=== PATIENT | male | born 1945 | race Caucasian/White ===

== ENCOUNTER 2018-02-19 00:26 | Inpatient (IN) | payer MEDICARE ==
[2018-02-19] MEDS ORDERED: ALBUTEROL NEBULIZED 2.5 MG/3 ML INHALATION STA (00:44)
[2018-02-19] MEDS ORDERED: AZITHROMYCIN 500 MG in SODIUM CHLORIDE 0.9% 250 ML IVPB STA (00:44)
[2018-02-19] MEDS ORDERED: methylPREDNISolone SOD SUCCI 125 MG/2 ML VIAL IV STA (00:44)
[2018-02-19] MEDS ORDERED: IPRATROPIUM 0.5 MG/2.5 ML NEBU INHALATION STA (00:44)
[2018-02-19] MEDS ORDERED: SODIUM CHLORIDE 0.9% 500 ML IV ONE ×2 (00:57→01:48)
[2018-02-19 01:00] LABS: Basophils % (A) 0 %; Eosinophils % (A) 0 %; HGB 11.2 gm/dL (13.0-17.5); Hypochromasia Moderate; Lymphocytes # (A) 1.2 k/uL (1.0-4.8); Lymphocytes % (A) 11 %; MCH 24.3 pg (25.0-35.0); MCHC 32.1 g/dL (31.0-37.0); MCV 75.7 fL (80.0-100.0); Mean Platelet Volume 6.9; Microcytosis Slight; Monocytes # (A) 1.1 k/uL (0-1.0); Monocytes % (A) 10 %; Neutrophils # (A) 8.1 k/uL (1.3-7.7); Neutrophils % (A) 75 %; Platelet Count 283 k/uL (150-450); RBC 4.62 m/uL (4.30-5.90); WBC 10.7 k/uL (3.8-10.6)
--- NOTE | 2018-02-19 01:01 | ED ---
General Adult HPI - General Chief complaint: Shortness of Breath Stated complaint: SHITAL Time Seen by Provider: 02/19/18 00:40 Source: patient, family, RN notes reviewed Mode of arrival: wheelchair Limitations: no limitations - History of Present Illness Initial comments: 72-year-old male history of COPD presents with 4 days of worsening cough and dyspnea. Patient has several no oxygen which she uses at home, he has been using 2 L. States his cough is productive of burton sputum. Denies any fever. Denies any central chest pain. Does report some chest pain which is worse with cough. Denies lower extremity swelling or edema or calf tenderness. No history of DVT or PE. Patient denies any known CAD or heart issues. He states he is still smoking although he has significantly cut back. - Related Data Allergies Allergy/AdvReac Type Severity Reaction Status Date / Time No Known Allergies Allergy Verified 02/19/18 00:34 Review of Systems ROS Statement: Those systems with pertinent positive or pertinent negative responses have been documented in the HPI. ROS Other: All systems not noted in ROS Statement are negative. Past Medical History Past Medical History: COPD, CVA/TIA History of Any Multi-Drug Resistant Organisms: None Reported Past Surgical History: No Surgical Hx Reported Past Psychological History: No Psychological Hx Reported Smoking Status: Current some day smoker Past Alcohol Use History: None Reported Past Drug Use History: None Reported General Exam Limitations: no limitations General appearance: alert, in distress Head exam: Present: atraumatic, normocephalic Eye exam: Present: normal appearance, PERRL, EOMI Respiratory exam: Present: respiratory distress, wheezes, rhonchi, decreased breath sounds, prolonged expiratory Cardiovascular Exam: Present: normal rhythm, tachycardia GI/Abdominal exam: Present: soft. Absent: distended, tenderness Extremities exam: Present: normal inspection, normal capillary refill. Absent: pedal edema, calf tenderness Neurological exam: Present: alert, oriented X3, CN II-XII intact. Absent: motor sensory deficit Psychiatric exam: Present: normal affect, normal mood Skin exam: Present: warm, dry, intact. Absent: cyanosis, diaphoretic Course Vital Signs 02/19/18 02/19/18 02/19/18 00:31 00:52 01:05 Temperature 99.0 F Pulse Rate 125 H 118 H 118 H Respiratory 36 H Rate Blood Pressure 169/81 O2 Sat by Pulse 93 L Oximetry 02/19/18 02/19/18 02/19/18 01:20 01:37 02:02 Temperature 100.8 F H Pulse Rate 110 H 113 H Respiratory Rate Blood Pressure O2 Sat by Pulse Oximetry 02/19/18 02:15 Temperature Pulse Rate 97 Respiratory 20 Rate Blood Pressure 142/63 O2 Sat by Pulse 96 Oximetry - Reevaluation(s) Reevaluation #1: 02/19/18 02:30 On reevaluation, patient is significantly improved on BiPAP. Oxygenation 100%, vital signs improved. Patient appears comfortable. He will be continued on BiPAP and admitted to [facility] ([facility] care. EKG Findings - EKG Comments: EKG Findings:: EKG: Sinus tachycardia, right atrial enlargement, ventricular rate 103, MN interval 122, QRS duration 94, QTC 437, there is no ST segment elevation. Medical Decision Making - Medical Decision Making 72-year-old male presenting with cough and dyspnea for the past 4 days. Patient is in severe respiratory distress upon arrival. He is hypoxic, placed on BiPAP, given albuterol Atrovent and steroids. Laboratory studies are obtained, white blood cell count 10.7 which is normal, hemoglobin 11.2, no baseline for comparison. Venous blood gas is obtained, this is significant for pH of 7.2 with a CO2 of 69 consistent with hypercarbic respiratory failure. Creatinine 1.4 no known baseline. There is troponin elevation of 0.051, this is likely secondary to demand ischemia and hypoxia. Troponin will be trended. BNP is normal. Chest x-ray shows hyperinflation, no focal pneumonia. D-dimer is elevated 1.6, however given the elevated creatinine VQ scan will be obtained, this is unable to be obtained in the emergency department, nuclear radiation engineer states this will hopefully be completed in the morning. Patient is started on high-dose heparin for about the concern of possible pulmonary embolism as well as troponin elevation. Diagnosis: COPD exacerbation with hypoxic hypercapnic respiratory failure. - Lab Data Result diagrams: 02/19/18 00:40 02/19/18 00:40 Lab Results 02/19/18 02/19/18 02/19/18 Range/Units 00:40 00:40 00:40 WBC 10.7 H (3.8-10.6) k/uL RBC 4.62 (4.30-5.90) m/uL Hgb 11.2 L (13.0-17.5) gm/dL Hct 35.0 L (39.0-53.0) % MCV 75.7 L (80.0-100.0) fL MCH 24.3 L (25.0-35.0) pg MCHC 32.1 (31.0-37.0) g/dL RDW 15.0 (11.5-15.5) % Plt Count 283 (150-450) k/uL Neutrophils % 75 % Lymphocytes % 11 % Monocytes % 10 % Eosinophils % 0 % Basophils % 0 % Neutrophils # 8.1 H (1.3-7.7) k/uL Lymphocytes # 1.2 (1.0-4.8) k/uL Monocytes # 1.1 H (0-1.0) k/uL Eosinophils # 0.0 (0-0.7) k/uL Basophils # 0.0 (0-0.2) k/uL Hypochromasia Moderate Microcytosis Slight PT (9.0-12.0) sec INR (<1.2) APTT (22.0-30.0) sec D-Dimer (<0.60) mg/L FEU VBG pH (7.31-7.41) VBG pCO2 (37-51) mmHg VBG HCO3 (24-28) mmol/L Sodium 140 (137-145) mmol/L Potassium 4.8 (3.5-5.1) mmol/L Chloride 101 (98-107) mmol/L Carbon Dioxide 27 (22-30) mmol/L Anion Gap 12 mmol/L BUN 23 H (9-20) mg/dL Creatinine 1.40 H (0.66-1.25) mg/dL Est GFR (CKD-EPI)AfAm 57 (>60 ml/min/1.73 sqM) Est GFR (CKD-EPI)NonAf 50 (>60 ml/min/1.73 sqM) Glucose 159 H (74-99) mg/dL Plasma Lactic Acid Andi (0.7-2.0) mmol/L Calcium 9.5 (8.4-10.2) mg/dL Magnesium 1.9 (1.6-2.3) mg/dL Total Bilirubin 0.6 (0.2-1.3) mg/dL AST 16 L (17-59) U/L ALT 16 L (21-72) U/L Alkaline Phosphatase 99 (38-126) U/L Total Creatine Kinase 107 (55-170) U/L CK-MB (CK-2) 3.4 H* (0.0-2.4) ng/mL CK-MB (CK-2) Rel Index 3.2 Troponin I 0.051 H* (0.000-0.034) ng/mL NT-Pro-B Natriuret Pep pg/mL Total Protein 7.1 (6.3-8.2) g/dL Albumin 4.0 (3.5-5.0) g/dL 02/19/18 02/19/18 02/19/18 Range/Units 00:40 00:40 00:40 WBC (3.8-10.6) k/uL RBC (4.30-5.90) m/uL Hgb (13.0-17.5) gm/dL Hct (39.0-53.0) % MCV (80.0-100.0) fL MCH (25.0-35.0) pg MCHC (31.0-37.0) g/dL RDW (11.5-15.5) % Plt Count (150-450) k/uL Neutrophils % % Lymphocytes % % Monocytes % % Eosinophils % % Basophils % % Neutrophils # (1.3-7.7) k/uL Lymphocytes # (1.0-4.8) k/uL Monocytes # (0-1.0) k/uL Eosinophils # (0-0.7) k/uL Basophils # (0-0.2) k/uL Hypochromasia Microcytosis PT 10.3 (9.0-12.0) sec INR 1.1 (<1.2) APTT 23.0 (22.0-30.0) sec D-Dimer 1.60 H (<0.60) mg/L FEU VBG pH 7.20 L* (7.31-7.41) VBG pCO2 69 H (37-51) mmHg VBG HCO3 26 (24-28) mmol/L Sodium (137-145) mmol/L Potassium (3.5-5.1) mmol/L Chloride (98-107) mmol/L Carbon Dioxide (22-30) mmol/L Anion Gap mmol/L BUN (9-20) mg/dL Creatinine (0.66-1.25) mg/dL Est GFR (CKD-EPI)AfAm (>60 ml/min/1.73 sqM) Est GFR (CKD-EPI)NonAf (>60 ml/min/1.73 sqM) Glucose (74-99) mg/dL Plasma Lactic Acid Andi (0.7-2.0) mmol/L Calcium (8.4-10.2) mg/dL Magnesium (1.6-2.3) mg/dL Total Bilirubin (0.2-1.3) mg/dL AST (17-59) U/L ALT (21-72) U/L Alkaline Phosphatase (38-126) U/L Total Creatine Kinase (55-170) U/L CK-MB (CK-2) (0.0-2.4) ng/mL CK-MB (CK-2) Rel Index Troponin I (0.000-0.034) ng/mL NT-Pro-B Natriuret Pep 540 pg/mL Total Protein (6.3-8.2) g/dL Albumin (3.5-5.0) g/dL 02/19/18 Range/Units 00:40 WBC (3.8-10.6) k/uL RBC (4.30-5.90) m/uL Hgb (13.0-17.5) gm/dL Hct (39.0-53.0) % MCV (80.0-100.0) fL MCH (25.0-35.0) pg MCHC (31.0-37.0) g/dL RDW (11.5-15.5) % Plt Count (150-450) k/uL Neutrophils % % Lymphocytes % % Monocytes % % Eosinophils % % Basophils % % Neutrophils # (1.3-7.7) k/uL Lymphocytes # (1.0-4.8) k/uL Monocytes # (0-1.0) k/uL Eosinophils # (0-0.7) k/uL Basophils # (0-0.2) k/uL Hypochromasia Microcytosis PT (9.0-12.0) sec INR (<1.2) APTT (22.0-30.0) sec D-Dimer (<0.60) mg/L FEU VBG pH (7.31-7.41) VBG pCO2 (37-51) mmHg VBG HCO3 (24-28) mmol/L Sodium (137-145) mmol/L Potassium (3.5-5.1) mmol/L Chloride (98-107) mmol/L Carbon Dioxide (22-30) mmol/L Anion Gap mmol/L BUN (9-20) mg/dL Creatinine (0.66-1.25) mg/dL Est GFR (CKD-EPI)AfAm (>60 ml/min/1.73 sqM) Est GFR (CKD-EPI)NonAf (>60 ml/min/1.73 sqM) Glucose (74-99) mg/dL Plasma Lactic Acid Andi 1.2 (0.7-2.0) mmol/L Calcium (8.4-10.2) mg/dL Magnesium (1.6-2.3) mg/dL Total Bilirubin (0.2-1.3) mg/dL AST (17-59) U/L ALT (21-72) U/L Alkaline Phosphatase (38-126) U/L Total Creatine Kinase (55-170) U/L CK-MB (CK-2) (0.0-2.4) ng/mL CK-MB (CK-2) Rel Index Troponin I (0.000-0.034) ng/mL NT-Pro-B Natriuret Pep pg/mL Total Protein (6.3-8.2) g/dL Albumin (3.5-5.0) g/dL Critical Care Time Critical Care Time: Yes Total Critical Care Time: 35 Disposition Clinical Impression: Acute exacerbation of chronic obstructive airways disease Disposition: ADMITTED IP TO THIS HOSP Condition: Stable Referrals: Pepe Ruvalcaba MD [Primary Care Provider] - 1-2 days Decision to Admit Reason: Admit from EC Decision Date: 02/19/18 Decision Time: 02:28
[2018-02-19 01:08] LABS: Calcium 9.5 mg/dL (8.4-10.2); D-Dimer 1.6 mg/L FEU (<0.60); Magnesium 1.9 mg/dL (1.6-2.3); Potassium 4.8 mmol/L (3.5-5.1); Total Bilirubin 0.6 mg/dL (0.2-1.3); Total Protein 7.1 g/dL (6.3-8.2)
[2018-02-19 01:12] LABS: VBG PH 7.2 (7.31-7.41)
[2018-02-19 01:17] LABS: INR 1.1 (<1.2); Prothrombin Time 10.3 sec (9.0-12.0)
[2018-02-19] MEDS: MAGNESIUM SULFATE-D5W PMX 1 GM in DEXTROSE/WATER 1 100ML.BAG IVPB SCH ×2 (01:24→02:51)
[2018-02-19] MEDS: SODIUM CHLORIDE 0.9% 1,000 ML IV SCH (01:32)
[2018-02-19 01:39] LABS: Creatine Kinase MB 3.4 ng/mL (0.0-2.4)
--- NOTE | 2018-02-19 01:39 | XR ---
EXAMINATION TYPE: XR chest 1V portable DATE OF EXAM: 02/19/2018 COMPARISON: 03/15/2015 HISTORY: Difficulty breathing TECHNIQUE: Single frontal view of the chest is obtained. FINDINGS: There is pulmonary hyperinflation and flattening of the diaphragm. Heart size is normal. T here is no heart failure. There are chest leads. Bony thorax appears intact. IMPRESSION: There is probably COPD. No active cardiopulmonary disease. There is clearing of minimal infiltrate at the right lung base compared to old exam.
[2018-02-19 01:40] LABS: Troponin I 0.051 ng/mL (0.000-0.034)
[2018-02-19] MEDS ORDERED: HEPARIN SODIUM,PORCINE 5,000 UNIT/ML 1 ML VIAL IV PRN (01:44)
[2018-02-19] MEDS ORDERED: HEPARIN SODIUM,PORCINE 10,000 UNIT/ML 1 ML VIAL IV ONE (01:44)
[2018-02-19] MEDS ORDERED: HEPARIN SOD,PORK IN 0.45% NACL 25,000 UNIT in 0.45% NACL 1 500ML.BAG IV SCH (01:45)
[2018-02-19] MEDS ORDERED: ASPIRIN 325 MG TAB PO STA (01:48)
[2018-02-19] MEDS ORDERED: ALBUTEROL NEBULIZED 2.5 MG/3 ML INHALATION PRN (02:22)
[2018-02-19] MEDS: ALBUTEROL NEBULIZED 2.5 MG/3 ML INHALATION SCH ×2 (03:47→08:34)
[2018-02-19 05:46] LABS: Glucose,Whole Blood 145 mg/dL (75-99)
[2018-02-19] MEDS: methylPREDNISolone SOD SUCCI 125 MG/2 ML VIAL IV SCH ×3 (06:11→17:04)
[2018-02-19] MEDS ORDERED: LEVOFLOXACIN 500 MG TAB PO SCH (09:00)
[2018-02-19 09:24] LABS: Creatine Kinase MB 3.4 ng/mL (0.0-2.4)
[2018-02-19 09:25] LABS: Troponin I 0.079 ng/mL (0.000-0.034)
[2018-02-19 09:43] LABS: Cholesterol 159 mg/dL (<200); HDL Cholesterol 58 mg/dL (40-60); LDL Cholesterol,Calculated 84 mg/dL (0-99); Triglycerides 83 mg/dL (<150)
--- NOTE | 2018-02-19 09:45 | NM ---
EXAMINATION TYPE: NM pul vent and perfuse DATE OF EXAM: 02/19/2018 COMPARISON: Chest radiograph dated 02/18/2018. HISTORY: Difficulty breathing, cough, and wheezing TECHNIQUE: Utilizing inhalation of 67.9 mCi Tc 99m DTPA aerosol and intravenous injection of 5.24 mC i of Tc 99m MAA, ventilation and perfusion images are acquired post injection in multiple projections . FINDINGS: Large matched defects are seen within nearly the entirety of the right upper lobe and left lower lobe . Diffuse radiotracer collection is seen on the ventilation images, limiting the exam. Matched defect s are also seen within the bilateral lung apices matched defect is also seen within the right anterio r lower lung. IMPRESSION: Exam is slightly limited due to radiotracer clumping from COPD can be seen in orchitis and reactive a irway disease. Numerous large matched defects are seen without focal consolidation on chest radiograp h corresponding to a low probability for pulmonary embolus.
[2018-02-19] MEDS ORDERED: ROFLUMILAST 500 MCG PO SCH (10:15)
--- NOTE | 2018-02-19 10:15 | CONS ---
CONSULTATION CHIEF COMPLAINT: Shortness of breath. Hunter is a 72-year-old gentleman with history of COPD that has not been treated very well, who comes in complaining of cough and progressively worsening dyspnea for the last few days. The patient has started using home O2 within the last week or 2 and treated for his COPD. He complains of cough and productive sputum and when he came in he was in respiratory failure with blood gases showing a pCO2 of 69 and bicarb of 26 with a pH of 7.2, but these were venous gases. At the time of my evaluation, he has a BiPAP on. He denies any chest pain. Labs that were done showed a D-dimer of 1.6. V/Q scan is scheduled. Troponin is elevated at 0.051.Troponin is slightly elevated. The EKG shows sinus tachycardia with nonspecific ST-T wave changes. PAST MEDICAL HISTORY: Past medical history is negative for hypertension, diabetes, dyslipidemia. Significant for severe COPD that has not been treated. MEDICATIONS: None. ALLERGIES: None. FAMILY HISTORY: Family history is negative for premature coronary artery disease. SOCIAL HISTORY: Social history is significant for smoking. There is no history of EtOH abuse or drug abuse. REVIEW OF SYSTEMS: HEENT is unremarkable. CARDIAC: As described above. RESPIRATORY: As described above. GI: Negative. GENITOURINARY: Negative. ALLERGY/IMMUNOLOGY: Negative. SKIN: Negative. MUSCULOSKELETAL: Significant for arthritis. PSYCHOSOCIAL: Negative. ENDOCRINE: Negative. HEMATOLOGICAL: Negative. DERM: Negative. CONSTITUTIONAL: Negative. ONCOLOGICAL: Negative. NURSES AIDE: Negative. Rest of the system review is not relevant. PHYSICAL EXAMINATION: On exam, Hemoglobin is 11.2, platelet count is 283. Potassium is 4.8, BUN is 23, creatinine is 1.4. Troponin is 0.051. BNP is 541. ASSESSMENT: 1. Acute exacerbation of chronic obstructive pulmonary disease. 2. D-dimer elevation, rule out pulmonary embolism. V/Q scan is pending. 3. Mild troponin elevation probably related to supply demand mismatch related to severe respiratory distress. PLAN: Please consult Pulmonary to manage his COPD. We can stop the heparin if the V/Q scan is negative. I will obtain a 2D echo to assess LV function and wall motion. Prognosis is guarded. MMODL / IJN: [id number] /
--- NOTE | 2018-02-19 10:16 | P.HPIM ---
History of Present Illness H&P Date: 02/19/18 Chief Complaint: Shortness of breath Hunter Grover is a 72-year-old male history of COPD who presented to [facility] emergency room was a chief complaint of severe shortness of breath and cough. He was evaluated in the emergency room, physical exam and chest x-ray were compatible with COPD he was started on IV antibiotics, IV steroids, and inhaled bronchodilators, patient also had slightly elevated troponin and elevated d-dimer he was started on IV heparin in the emergency room , subsequently he had a VQ scan that was low probability for pulmonary embolism. Patient was admitted to telemetry floor pulmonary and cardiology consultation were requested. Patient has a long history of chronic obstructive pulmonary disease with chronic respiratory failure he was recently started on home oxygen he is still smokes a few cigarettes per day despite extensive counseling. Patient denies any previous history of coronary artery disease or congestive heart failure in the past, he did not have any cardiac workup previously. On review of systems: Patient is alert and oriented 3 he denies any fever or chills there is no headache or dizziness No chest pain no palpitation He is complaining of severe shortness of breath and cough, both improved since presentation to emergency room There is no nausea or vomiting no abdominal pain no diarrhea or constipation no blood in the stools. No burning was urination no frequency or urgency and no hematuria Patient denies lower extremity pain, there is no weakness or numbness in any of his extremities. Past Medical History Past Medical History: COPD, CVA/TIA Additional Past Medical History / Comment(s): TIA in 2007 History of Any Multi-Drug Resistant Organisms: None Reported Past Surgical History: No Surgical Hx Reported Additional Past Surgical History / Comment(s): vasectomy Past Anesthesia/Blood Transfusion Reactions: No Reported Reaction Past Psychological History: No Psychological Hx Reported Smoking Status: Current some day smoker Past Alcohol Use History: None Reported Past Drug Use History: None Reported - Past Family History Mother Family Medical History: No Reported History Additional Family Medical History / Comment(s): breast cancer history on mothers side Medications and Allergies Home Medications Medication Instructions Recorded Confirmed Type Ipratropium-Albuterol Nebulize 3 ml INHALATION RT-QID 02/19/18 02/19/18 History [Duoneb 0.5 mg-3 mg/3 ml Soln] Roflumilast [Daliresp] 500 mcg PO DAILY 02/19/18 02/19/18 History Allergies Allergy/AdvReac Type Severity Reaction Status Date / Time No Known Allergies Allergy Verified 02/19/18 09:16 Physical Exam Vitals: Vital Signs Temp Pulse Pulse Resp BP BP Pulse Ox 02/19/18 08:44 62 02/19/18 08:34 61 99 02/19/18 08:00 63 26 H 120/56 99 02/19/18 04:30 97.5 F L 88 24 132/60 96 02/19/18 02:54 92 18 122/64 96 02/19/18 02:15 97 20 142/63 96 02/19/18 02:02 100.8 F H 02/19/18 01:37 113 H 02/19/18 01:20 110 H 02/19/18 01:05 118 H 02/19/18 00:52 118 H 02/19/18 00:31 99.0 F 125 H 36 H 169/81 93 L Intake and Output 02/18/18 02/19/18 02/19/18 22:59 06:59 14:59 Intake Total 150 Balance 150 Intake: Intake, IV Titration 150 Amount Sodium Chloride 0.9% 1, 150 000 ml @ 75 mls/hr IV . [id number] [facility] Rx#:[id number] Other: Voiding Method Urinal Urinal Weight 65.771 kg In general patient is alert and oriented 3 in no apparent distress HEENT head normocephalic and atraumatic Neck is supple no JVD no goiter no lymphadenopathy Chest exam reveals a few scattered crackles bilaterally no wheezing at this time Cardiac exam reveals regular heart sounds S1 and S2 no gallops no murmurs Abdomen is soft nontender no organomegaly with normal bowel sounds Extremity exam reveals no edema no cyanosis or clubbing Neurological examination reveals no gross focal deficit Results CBC & Chem 7: 02/19/18 00:40 02/19/18 00:40 Labs: Abnormal Lab Results - Last 24 Hours (Table) 02/19/18 02/19/18 02/19/18 Range/Units 00:40 00:40 00:40 WBC 10.7 H (3.8-10.6) k/uL Hgb 11.2 L (13.0-17.5) gm/dL Hct 35.0 L (39.0-53.0) % MCV 75.7 L (80.0-100.0) fL MCH 24.3 L (25.0-35.0) pg Neutrophils # 8.1 H (1.3-7.7) k/uL Monocytes # 1.1 H (0-1.0) k/uL APTT (22.0-30.0) sec D-Dimer (<0.60) mg/L FEU VBG pH (7.31-7.41) VBG pCO2 (37-51) mmHg BUN 23 H (9-20) mg/dL Creatinine 1.40 H (0.66-1.25) mg/dL Glucose 159 H (74-99) mg/dL POC Glucose (mg/dL) (75-99) mg/dL AST 16 L (17-59) U/L ALT 16 L (21-72) U/L CK-MB (CK-2) 3.4 H* (0.0-2.4) ng/mL Troponin I 0.051 H* (0.000-0.034) ng/mL 02/19/18 02/19/18 02/19/18 Range/Units 00:40 00:40 05:45 WBC (3.8-10.6) k/uL Hgb (13.0-17.5) gm/dL Hct (39.0-53.0) % MCV (80.0-100.0) fL MCH (25.0-35.0) pg Neutrophils # (1.3-7.7) k/uL Monocytes # (0-1.0) k/uL APTT (22.0-30.0) sec D-Dimer 1.60 H (<0.60) mg/L FEU VBG pH 7.20 L* (7.31-7.41) VBG pCO2 69 H (37-51) mmHg BUN (9-20) mg/dL Creatinine (0.66-1.25) mg/dL Glucose (74-99) mg/dL POC Glucose (mg/dL) 145 H (75-99) mg/dL AST (17-59) U/L ALT (21-72) U/L CK-MB (CK-2) (0.0-2.4) ng/mL Troponin I (0.000-0.034) ng/mL 02/19/18 02/19/18 Range/Units 07:49 07:49 WBC (3.8-10.6) k/uL Hgb (13.0-17.5) gm/dL Hct (39.0-53.0) % MCV (80.0-100.0) fL MCH (25.0-35.0) pg Neutrophils # (1.3-7.7) k/uL Monocytes # (0-1.0) k/uL APTT 49.6 H (22.0-30.0) sec D-Dimer (<0.60) mg/L FEU VBG pH (7.31-7.41) VBG pCO2 (37-51) mmHg BUN (9-20) mg/dL Creatinine (0.66-1.25) mg/dL Glucose (74-99) mg/dL POC Glucose (mg/dL) (75-99) mg/dL AST (17-59) U/L ALT (21-72) U/L CK-MB (CK-2) 3.4 H* (0.0-2.4) ng/mL Troponin I 0.079 H* (0.000-0.034) ng/mL Thrombosis Risk Factor Assmnt - Choose All That Apply Any of the Below Risk Factors Present?: Yes Each Factor Represents 1 point: Abnormal pulmonary function (COPD) Other Risk Factors: Yes Each Risk Factor Represents 2 Points: Age 61-74 years Each Risk Factor Represents 3 Points: Family history of DVT/PE Thrombosis Risk Factor Assessment Total Risk Factor Score: 6 Thrombosis Risk Factor Assessment Level: High Risk Assessment and Plan Plan: #1 acute purulent bronchitis #2 acute exacerbation of chronic obstructive pulmonary disease #3 chronic hypoxic respiratory failure #4 elevated d-dimer, with low probability VQ scan #5 elevated troponin levels At this time patient is maintained on IV Solu-Medrol, IV Levaquin, IV heparin DuoNeb updrafts 4 times daily and oxygen treatment He improved significantly since admission Will continue with current management awaiting input from cardiology and pulmonary Patient was counseled again regarding smoking cessation he has two daughters, who are both nurses and were present at the bedside during counseling. Patient seems to understand importance of smoking cessation.
[2018-02-19 11:33] LABS: Glucose,Whole Blood 164 mg/dL (75-99)
[2018-02-19] MEDS: IPRATROPIUM-ALBUTEROL 3 ML NEB INHALATION SCH ×3 (11:50→19:49)
--- NOTE | 2018-02-19 12:03 | ECHOF ---
Referral Reason:dyspnea MEASUREMENTS -------- HEIGHT: 180.3 cm WEIGHT: 65.8 kg BP: 120/56 RVIDd: 3.6 cm (< 3.3) IVSd: 1.4 cm (0.6 - 1.1) LVIDd: 3.6 cm (3.9 - 5.3) LVPWd: 1.3 cm (0.6 - 1.1) IVSs: 1.9 cm LVIDs: 2.6 cm LVPWs: 1.6 cm LA Diam: 3.0 cm (2.7 - 3.8) Ao Diam: 3.3 cm (2.0 - 3.7) AV Cusp: 2.4 cm (1.5 - 2.6) MV EXCURSION: 16.594 mm (> 18.000) MV EF SLOPE: 173 mm/s (70 - 150) EPSS: 0.4 cm MV E Chidi: 0.72 m/s MV DecT: 227 ms MV A Chidi: 0.78 m/s MV E/A Ratio: 0.93 FINDINGS -------- Sinus rhythm. This was a technically adequate study. The left ventricular size is normal. There is moderate concentric left ventricular hypertrophy. O verall left ventricular systolic function is normal with, an EF between 55 - 60 %. The right ventricle is mildly enlarged. The left atrium is normal in size. The right atrium is normal in size. The aortic valve is trileaflet and appears structurally normal. Mild mitral annular calcification present. The tricuspid valve appears structurally normal. There is no pulmonic regurgitation present. The aortic root size is normal. Normal inferior vena cava with normal inspiratory collapse consistent with estimated right atrial pre ssure of 5 mmHg. There is no pericardial effusion. CONCLUSIONS -------- 1. Sinus rhythm. 2. This was a technically adequate study. 3. The left ventricular size is normal. 4. There is moderate concentric left ventricular hypertrophy. 5. Overall left ventricular systolic function is normal with, an EF between 55 - 60 %. 6. The right ventricle is mildly enlarged. 7. The left atrium is normal in size. 8. The right atrium is normal in size. 9. The aortic valve is trileaflet and appears structurally normal. 10. Mild mitral annular calcification present. 11. The tricuspid valve appears structurally normal. 12. There is no pulmonic regurgitation present. 13. The aortic root size is normal. 14. Normal inferior vena cava with normal inspiratory collapse consistent with estimated right atrial pressure of 5 mmHg. 15. There is no pericardial effusion. RUBB[employer] COMPOUNDER SUPERVISOR: Leslee Thornton RDCS
[2018-02-19 13:56] LABS: Creatine Kinase MB 4.7 ng/mL (0.0-2.4); Troponin I 0.061 ng/mL (0.000-0.034)
--- NOTE | 2018-02-19 14:30 | P.CNPUL ---
History of Present Illness Consult date: 02/19/18 Reason for consult: dyspnea, cough, COPD, hypoxemia Chief complaint: Shortness of breath History of present illness: Consult dated 02/19/2018 This is a 72-year-old male with a history of COPD. Presents with 4 days of increasing shortness of breath cough wheezing chest tightness and yellow-green phlegm production. He recently was prescribed oxygen therapy by his primary care physician. Has never seen a lung doctor in the past. Started smoking at the age of 13 he continues to smoke. He smokes anywhere from 1-3 packs a day. The patient denies coughing up blood. Appetite and poor the last couple of days. He's lost a bit of weight not a lot. The patient has chest x-ray which was primarily COPD. He denies any other major medical problems including diabetes high blood pressure hyperlipidemia hypertension coronary artery disease , etc. He apparently did have a history in the past of CVA or TIA. 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 Review of Systems Constitutional negative, neurologic negative, cardiovascular negative, HEENT negative, pulmonary shortness of breath chest tightness wheezing coughing yellow -green phlegm production, GI/ negative, rheumatologic negative dermatologic negative endocrinologic negative Past Medical History Past Medical History: COPD, CVA/TIA Additional Past Medical History / Comment(s): TIA in 2007 History of Any Multi-Drug Resistant Organisms: None Reported Past Surgical History: No Surgical Hx Reported Additional Past Surgical History / Comment(s): vasectomy Past Anesthesia/Blood Transfusion Reactions: No Reported Reaction Past Psychological History: No Psychological Hx Reported Smoking Status: Current some day smoker Past Alcohol Use History: None Reported Past Drug Use History: None Reported - Past Family History Mother Family Medical History: No Reported History Additional Family Medical History / Comment(s): breast cancer history on mothers side Medications and Allergies Home Medications Medication Instructions Recorded Confirmed Type Ipratropium-Albuterol Nebulize 3 ml INHALATION RT-QID 02/19/18 02/19/18 History [Duoneb 0.5 mg-3 mg/3 ml Soln] Roflumilast [Daliresp] 500 mcg PO DAILY 02/19/18 02/19/18 History Allergies Allergy/AdvReac Type Severity Reaction Status Date / Time No Known Allergies Allergy Verified 02/19/18 09:16 Physical Exam Osteopathic Statement: *. No significant issues noted on an osteopathic structural exam other than those noted in the History and Physical/Consult. Vitals: Vital Signs Temp Pulse Pulse Resp BP BP Pulse Ox 02/19/18 12:00 97.0 F L 67 78 18 142/65 96 02/19/18 11:50 66 02/19/18 08:44 62 02/19/18 08:34 61 99 02/19/18 08:00 63 26 H 120/56 99 02/19/18 04:30 97.5 F L 88 24 132/60 96 02/19/18 02:54 92 18 122/64 96 02/19/18 02:15 97 20 142/63 96 02/19/18 02:02 100.8 F H 02/19/18 01:37 113 H 02/19/18 01:20 110 H 02/19/18 01:05 118 H 02/19/18 00:52 118 H 02/19/18 00:31 99.0 F 125 H 36 H 169/81 93 L Intake and Output 02/18/18 02/19/18 02/19/18 22:59 06:59 14:59 Intake Total 150 Balance 150 Intake: Intake, IV Titration 150 Amount Sodium Chloride 0.9% 1, 150 000 ml @ 75 mls/hr IV . [id number] [facility] Rx#:[id number] Other: Voiding Method Urinal Urinal Weight 65.771 kg No acute distress, oriented 3. The patient is wearing oxygen by nasal cannula HEENT examination is grossly unremarkable. Mucous membranes are moist. No oral lesions. There is a small lipoma on the left side of his forehead. Neck supple. Full range of motion. No adenopathy thyromegaly or neck vein distention. Cardiovascular examination reveals regular rhythm rate. S1-S2 normal. No S3 or S4. No discernible murmur noted. Lungs reveal severely diminished breath sounds. Breath sounds are equal bilaterally. There is prolongation on forced maneuver. The patient wheezes and coughs on forced maneuver. There are also coarse rhonchi on forced maneuver.. Abdomen soft bowel sounds are heard. No masses or tenderness. Extremities are intact. No cyanosis clubbing or edema. Skin is without rash or lesion. Neurologic examination is brief but nonfocal. Results - Laboratory Findings CBC and BMP: 02/19/18 00:40 02/19/18 00:40 PT/INR, D-dimer PT 10.3 sec (9.0-12.0) 02/19/18 00:40 INR 1.1 (<1.2) 02/19/18 00:40 D-Dimer 1.60 mg/L FEU (<0.60) H 02/19/18 00:40 Abnormal lab findings: Abnormal Labs 02/19/18 02/19/18 02/19/18 00:40 00:40 00:40 WBC 10.7 H Hgb 11.2 L Hct 35.0 L MCV 75.7 L MCH 24.3 L Neutrophils # 8.1 H Monocytes # 1.1 H APTT D-Dimer VBG pH VBG pCO2 BUN 23 H Creatinine 1.40 H Glucose 159 H POC Glucose (mg/dL) AST 16 L ALT 16 L CK-MB (CK-2) 3.4 H* Troponin I 0.051 H* 02/19/18 02/19/18 02/19/18 00:40 00:40 05:45 WBC Hgb Hct MCV MCH Neutrophils # Monocytes # APTT D-Dimer 1.60 H VBG pH 7.20 L* VBG pCO2 69 H BUN Creatinine Glucose POC Glucose (mg/dL) 145 H AST ALT CK-MB (CK-2) Troponin I 02/19/18 02/19/18 02/19/18 07:49 07:49 11:29 WBC Hgb Hct MCV MCH Neutrophils # Monocytes # APTT 49.6 H D-Dimer VBG pH VBG pCO2 BUN Creatinine Glucose POC Glucose (mg/dL) 164 H AST ALT CK-MB (CK-2) 3.4 H* Troponin I 0.079 H* 02/19/18 12:42 WBC Hgb Hct MCV MCH Neutrophils # Monocytes # APTT D-Dimer VBG pH VBG pCO2 BUN Creatinine Glucose POC Glucose (mg/dL) AST ALT CK-MB (CK-2) 4.7 H* Troponin I 0.061 H* - Diagnostic Findings Chest x-ray: image reviewed (Chest x-ray labs and medications are all reviewed.) Assessment and Plan Assessment: Assessment COPD exacerbation complicated by purulent tracheobronchitis Probable severe emphysema Previous history of TIA 60 years of tobacco use at one pack a day or more with ongoing tobacco use with nicotine addiction Hypoxemia secondary to COPD Plan: Plan dated 02/19/2018 The patient will be placed on systemic corticosteroids. The patient should also be on DuoNeb's 4 times a day and when necessary as well as long-acting beta agonist and inhaled corticosteroids. An oral antibiotic would be appropriate. More importantly, the patient is counseled on the importance of smoking cessation and the patient will follow with me in the office post discharge for pulmonary function test and a 6 minute walk distance. Time with Patient: Greater than 30
[2018-02-19 16:33] LABS: Glucose,Whole Blood 136 mg/dL (75-99)
[2018-02-19] MEDS: BUDESONIDE 1 MG/2 ML NEBU INHALATION SCH (19:49)
[2018-02-19] MEDS: FORMOTEROL FUMARATE 20 MCG/2 ML NEBU INHALATION SCH (19:53)
[2018-02-19] MEDS ORDERED: IPRATROPIUM-ALBUTEROL 3 ML NEB INHALATION PRN (20:07)
[2018-02-19 21:20] LABS: Glucose,Whole Blood 155 mg/dL (75-99)
[2018-02-20] MEDS: methylPREDNISolone SOD SUCCI 125 MG/2 ML VIAL IV SCH ×4 (00:54→17:31)
[2018-02-20 05:40] LABS: Glucose,Whole Blood 157 mg/dL (75-99)
[2018-02-20] MEDS: SODIUM CHLORIDE 0.9% 1,000 ML IV SCH ×2 (05:48→17:34)
[2018-02-20 06:21] LABS: Basophils % (A) 0 %; Eosinophils % (A) 0 %; Hypochromasia Moderate; Lymphocytes # (A) 0.3 k/uL (1.0-4.8); Lymphocytes % (A) 5 %; MCH 23.8 pg (25.0-35.0); MCHC 31.8 g/dL (31.0-37.0); MCV 74.9 fL (80.0-100.0); Mean Platelet Volume 6.5; Microcytosis Slight; Monocytes # (A) 0.3 k/uL (0-1.0); Monocytes % (A) 5 %; Neutrophils # (A) 5.7 k/uL (1.3-7.7); Neutrophils % (A) 89 %; Platelet Count 170 k/uL (150-450); RBC 3.47 m/uL (4.30-5.90); RDW 14.8 % (11.5-15.5); WBC 6.4 k/uL (3.8-10.6)
[2018-02-20 06:32] LABS: Albumin 2.6 g/dL (3.5-5.0); Calcium 8.6 mg/dL (8.4-10.2); Potassium 4.2 mmol/L (3.5-5.1); Total Bilirubin 0.1 mg/dL (0.2-1.3); Total Protein 5.2 g/dL (6.3-8.2)
[2018-02-20 06:33] LABS: HGB 8.3 gm/dL (13.0-17.5)
[2018-02-20] MEDS: FORMOTEROL FUMARATE 20 MCG/2 ML NEBU INHALATION SCH ×2 (07:39→19:10)
[2018-02-20] MEDS: BUDESONIDE 1 MG/2 ML NEBU INHALATION SCH ×2 (07:39→19:11)
[2018-02-20] MEDS: IPRATROPIUM-ALBUTEROL 3 ML NEB INHALATION SCH ×4 (07:39→19:10)
[2018-02-20] MEDS: NICOTINE 21MG/24HR PATCH TRANSDERM SCH (08:45)
[2018-02-20] MEDS: LEVOFLOXACIN 250 MG TAB PO SCH (08:45)
[2018-02-20 10:37] LABS: Basophils % (A) 0 %; Eosinophils % (A) 0 %; HCT 26.1 % (39.0-53.0); HGB 8.1 gm/dL (13.0-17.5); Hypochromasia Moderate; Lymphocytes # (A) 0.2 k/uL (1.0-4.8); Lymphocytes % (A) 3 %; MCH 23.3 pg (25.0-35.0); MCV 75.1 fL (80.0-100.0); Mean Platelet Volume 7.3; Microcytosis Slight; Monocytes # (A) 0.3 k/uL (0-1.0); Monocytes % (A) 5 %; Neutrophils # (A) 6.3 k/uL (1.3-7.7); Neutrophils % (A) 92 %; Platelet Count 184 k/uL (150-450); RBC 3.48 m/uL (4.30-5.90); RDW 15.4 % (11.5-15.5); WBC 6.8 k/uL (3.8-10.6)
--- NOTE | 2018-02-20 11:19 | P.PN ---
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 [employer], at which he worked for several years. Patient has history of COPD, he also has been a 3 pack per day smoker for several years, attempting to cut down recently. History of multiple TIAs in the past, EtOH use. He presented to the hospital because of symptoms of progressively worsening shortness of breath. Patient also states that he had been coughing up some dark brown and abbott colored sputum. His chest x-ray on admission revealed COPD with no active cardiopulmonary disease. There is clearing of minimal infiltrate in the right lung base as noted with prior exam. An echocardiogram with Doppler study was performed which revealed an ejection fraction of 55-60%. Platelets ON ADMISSION 10.7, HEMOGLOBIN ON ADMISSION 11.2. HEMOGLOBIN THIS MORNING 8.1. D- DIMER 1.6. VQ SCAN WAS PERFORMED WHICH WAS LOW PROBABILITY FOR PULMONARY EMBOLISM. CREATININE ON ADMISSION 1.4, 1.0 THIS MORNING. TROPONINS 0.05, 0.07 , 0.06. Likely secondary to oxygen supply and demand mismatch. Objective - Vital Signs Vital signs: Vital Signs Temp 96.7 F L 02/20/18 08:40 Pulse 70 02/20/18 11:08 Resp 16 02/20/18 08:40 BP 124/58 02/20/18 08:40 Pulse Ox 93 L 02/20/18 08:40 Intake & Output 02/19/18 02/20/18 02/20/18 18:59 06:59 18:59 Intake Total 360 600 Output Total 300 500 275 Balance 60 100 -275 Weight 65 kg Intake: Intake, IV Titration 600 Amount Sodium Chloride 0.9% 1, 600 000 ml @ 75 mls/hr IV . [id number] [facility] Rx#:[id number] Oral 360 Output: Urine 300 500 275 Other: Voiding Method Urinal Urinal Urinal # Voids 1 - Exam PHYSICAL EXAMINATION: HEENT: Head is atraumatic, normocephalic. Pupils equal, round. Neck is supple. There is no elevated jugular venous pressure. Small lipoma on the left side of forehead noted HEART EXAMINATION: Heart S1, S2 normal. No murmur or gallop heard. CHEST EXAMINATION: Lungs reveals diminished breath sounds bilaterally ABDOMEN: Soft, nontender. Bowel sounds are heard. No organomegaly noted. EXTREMITIES: 2+ peripheral pulses with no evidence of peripheral edema and no calf tenderness noted. NEUROLOGIC patient is awake, alert and oriented -2. . - Labs CBC & Chem 7: 02/20/18 10:19 02/20/18 05:23 Labs: Abnormal Lab Results - Last 24 Hours (Table) 02/19/18 02/19/18 02/19/18 Range/Units 11:29 12:42 16:29 RBC (4.30-5.90) m/uL Hgb (13.0-17.5) gm/dL Hct (39.0-53.0) % MCV (80.0-100.0) fL MCH (25.0-35.0) pg Lymphocytes # (1.0-4.8) k/uL Sodium (137-145) mmol/L BUN (9-20) mg/dL Glucose (74-99) mg/dL POC Glucose (mg/dL) 164 H 136 H (75-99) mg/dL Total Bilirubin (0.2-1.3) mg/dL AST (17-59) U/L ALT (21-72) U/L CK-MB (CK-2) 4.7 H* (0.0-2.4) ng/mL Troponin I 0.061 H* (0.000-0.034) ng/mL Total Protein (6.3-8.2) g/dL Albumin (3.5-5.0) g/dL 02/19/18 02/20/18 02/20/18 Range/Units 20:53 05:23 05:23 RBC 3.47 L (4.30-5.90) m/uL Hgb 8.3 L D (13.0-17.5) gm/dL Hct 26.0 L (39.0-53.0) % MCV 74.9 L (80.0-100.0) fL MCH 23.8 L (25.0-35.0) pg Lymphocytes # 0.3 L (1.0-4.8) k/uL Sodium 135 L (137-145) mmol/L BUN 26 H (9-20) mg/dL Glucose 143 H (74-99) mg/dL POC Glucose (mg/dL) 155 H (75-99) mg/dL Total Bilirubin 0.1 L (0.2-1.3) mg/dL AST 11 L (17-59) U/L ALT 18 L (21-72) U/L CK-MB (CK-2) (0.0-2.4) ng/mL Troponin I (0.000-0.034) ng/mL Total Protein 5.2 L (6.3-8.2) g/dL Albumin 2.6 L (3.5-5.0) g/dL 02/20/18 02/20/18 Range/Units 05:37 10:19 RBC 3.48 L (4.30-5.90) m/uL Hgb 8.1 L (13.0-17.5) gm/dL Hct 26.1 L (39.0-53.0) % MCV 75.1 L (80.0-100.0) fL MCH 23.3 L (25.0-35.0) pg Lymphocytes # 0.2 L (1.0-4.8) k/uL Sodium (137-145) mmol/L BUN (9-20) mg/dL Glucose (74-99) mg/dL POC Glucose (mg/dL) 157 H (75-99) mg/dL Total Bilirubin (0.2-1.3) mg/dL AST (17-59) U/L ALT (21-72) U/L CK-MB (CK-2) (0.0-2.4) ng/mL Troponin I (0.000-0.034) ng/mL Total Protein (6.3-8.2) g/dL Albumin (3.5-5.0) g/dL Microbiology - Last 24 Hours (Table) 02/19/18 00:40 Blood Culture - Preliminary Blood No Growth after 24 hours Assessment and Plan Plan: Assessment and plan #1 COPD exacerbation with associated purulent tracheobronchitis #2 severe emphysema #3 nicotine dependence #4 prior history of TIAs #5 abnormal troponin, likely secondary to oxygen supply and demand mismatch. Plan From cardiology's perspective, we will recommend to continue the patient on his current medications. We will follow him along with you now on an as-needed basis only, please don't hesitate to call with any questions. DNP note has been reviewed, I agree with a documented findings and plan of care. Patient was seen and examined.
--- NOTE | 2018-02-20 11:29 | P.PN ---
Subjective Progress Note Date: 02/20/18 Hunter Grover is a 72-year-old male history of COPD who presented to [facility] emergency room was a chief complaint of severe shortness of breath and cough. He was evaluated in the emergency room, physical exam and chest x-ray were compatible with COPD he was started on IV antibiotics, IV steroids, and inhaled bronchodilators, patient also had slightly elevated troponin and elevated d-dimer he was started on IV heparin in the emergency room , subsequently he had a VQ scan that was low probability for pulmonary embolism. Patient was admitted to telemetry floor pulmonary and cardiology consultation were requested. Patient has a long history of chronic obstructive pulmonary disease with chronic respiratory failure he was recently started on home oxygen he is still smokes a few cigarettes per day despite extensive counseling. Patient denies any previous history of coronary artery disease or congestive heart failure in the past, he did not have any cardiac workup previously. 02/20/2018 patient short of breath with activity. Use of accessory muscles noted after getting a bag out of the closet. Patient also reports that his sputum is becoming clearer was a thick grayish color is now turning yellow. Patient denies any chest pain. Denies any nausea vomiting or abdominal pain. His hemoglobin has dropped from 11.2-8.1. No active signs of bleeding. Patient reports never having a colonoscopy or EGD. He did receive IV fluid boluses in the emergency room. Which may contribute to his anemia. Stool for occult blood and iron studies ordered Objective - Vital Signs Vital signs: Vital Signs Temp 96.7 F L 02/20/18 08:40 Pulse 70 02/20/18 11:08 Resp 16 02/20/18 08:40 BP 124/58 02/20/18 08:40 Pulse Ox 93 L 02/20/18 08:40 Intake & Output 02/19/18 02/20/18 02/20/18 18:59 06:59 18:59 Intake Total 360 600 Output Total 300 500 275 Balance 60 100 -275 Weight 65 kg Intake: Intake, IV Titration 600 Amount Sodium Chloride 0.9% 1, 600 000 ml @ 75 mls/hr IV . [id number] [facility] Rx#:[id number] Oral 360 Output: Urine 300 500 275 Other: Voiding Method Urinal Urinal Urinal # Voids 1 - Exam Head normocephalic Neck supple Lungs tight and diminished bilaterally no crackles. Use of accessory muscles initially during exam. Heart regular rate and rhythm S1-S2, no rub or gallop Abdomen is soft nontender nondistended positive bowel sounds no hepatosplenomegaly Extremities no edema Neuro alert and orientated to 3 - Labs CBC & Chem 7: 02/20/18 10:19 02/20/18 05:23 Labs: Abnormal Lab Results - Last 24 Hours (Table) 02/19/18 02/19/18 02/19/18 Range/Units 11:29 12:42 16:29 RBC (4.30-5.90) m/uL Hgb (13.0-17.5) gm/dL Hct (39.0-53.0) % MCV (80.0-100.0) fL MCH (25.0-35.0) pg Lymphocytes # (1.0-4.8) k/uL Sodium (137-145) mmol/L BUN (9-20) mg/dL Glucose (74-99) mg/dL POC Glucose (mg/dL) 164 H 136 H (75-99) mg/dL Total Bilirubin (0.2-1.3) mg/dL AST (17-59) U/L ALT (21-72) U/L CK-MB (CK-2) 4.7 H* (0.0-2.4) ng/mL Troponin I 0.061 H* (0.000-0.034) ng/mL Total Protein (6.3-8.2) g/dL Albumin (3.5-5.0) g/dL 02/19/18 02/20/18 02/20/18 Range/Units 20:53 05:23 05:23 RBC 3.47 L (4.30-5.90) m/uL Hgb 8.3 L D (13.0-17.5) gm/dL Hct 26.0 L (39.0-53.0) % MCV 74.9 L (80.0-100.0) fL MCH 23.8 L (25.0-35.0) pg Lymphocytes # 0.3 L (1.0-4.8) k/uL Sodium 135 L (137-145) mmol/L BUN 26 H (9-20) mg/dL Glucose 143 H (74-99) mg/dL POC Glucose (mg/dL) 155 H (75-99) mg/dL Total Bilirubin 0.1 L (0.2-1.3) mg/dL AST 11 L (17-59) U/L ALT 18 L (21-72) U/L CK-MB (CK-2) (0.0-2.4) ng/mL Troponin I (0.000-0.034) ng/mL Total Protein 5.2 L (6.3-8.2) g/dL Albumin 2.6 L (3.5-5.0) g/dL 02/20/18 02/20/18 Range/Units 05:37 10:19 RBC 3.48 L (4.30-5.90) m/uL Hgb 8.1 L (13.0-17.5) gm/dL Hct 26.1 L (39.0-53.0) % MCV 75.1 L (80.0-100.0) fL MCH 23.3 L (25.0-35.0) pg Lymphocytes # 0.2 L (1.0-4.8) k/uL Sodium (137-145) mmol/L BUN (9-20) mg/dL Glucose (74-99) mg/dL POC Glucose (mg/dL) 157 H (75-99) mg/dL Total Bilirubin (0.2-1.3) mg/dL AST (17-59) U/L ALT (21-72) U/L CK-MB (CK-2) (0.0-2.4) ng/mL Troponin I (0.000-0.034) ng/mL Total Protein (6.3-8.2) g/dL Albumin (3.5-5.0) g/dL Microbiology - Last 24 Hours (Table) 02/19/18 00:40 Blood Culture - Preliminary Blood No Growth after 24 hours Assessment and Plan Assessment: #1 acute purulent bronchitis: Continue Levaquin. Check sputum culture. Pulmonary service following #2 acute exacerbation of chronic obstructive pulmonary disease: Continue IV Solu -Medrol and bronchodilators. Pulmonary added Pulmicort and Perforomist #3 chronic hypoxic respiratory failure #4 elevated d-dimer, with low probability VQ scan #5 elevated troponin levels: seen evaluated by cardiology. They felt that the elevated troponins were likely related to supply demand mismatch related to severe respiratory distress. Echo shows an EF of 55-60% #6 nicotine dependence discussed smoking cessation. Continue nicotine patch #7 anemia: GI service consulted. Check stool for occult blood and iron studies. Large drop in hemoglobin from 11.2-8.1 GI prophylaxis Protonix and DVT prophylaxis SCDs I performed an examination of the patient and discussed their management with the physician Neurocritical Care Physician. I have reviewed the Physician Neurocritical Care Physician's notes and agree with the documented findings and plan of care
[2018-02-20 11:31] LABS: Glucose,Whole Blood 161 mg/dL (75-99)
--- NOTE | 2018-02-20 11:38 | P.PN ---
Subjective Progress Note Date: 02/20/18 Principal diagnosis: COPD exacerbation Progress note dated 02/20/2018 This is a 72-year-old patient who was admitted with a COPD exacerbation. He came both 4 days of increasing shortness of breath cough wheezing chest tightness and yellow-green phlegm production. He has never seen a lung doctor and likely has severe COPD. He started smoking at the age of 13. Still smokes. 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 The patient only was on nebulizer treatments at home. He is doing better today. Feeling less short of breath. Coughing less. Still lots of chest congestion. Probably will not be discharged until tomorrow. He has a previous history of CVA/TIA. Objective - Vital Signs Vital signs: Vital Signs Temp 96.7 F L 02/20/18 08:40 Pulse 74 02/20/18 11:18 Resp 16 02/20/18 08:40 BP 124/58 02/20/18 08:40 Pulse Ox 93 L 02/20/18 08:40 Intake & Output 02/19/18 02/20/18 02/20/18 18:59 06:59 18:59 Intake Total 360 600 Output Total 300 500 275 Balance 60 100 -275 Weight 65 kg Intake: Intake, IV Titration 600 Amount Sodium Chloride 0.9% 1, 600 000 ml @ 75 mls/hr IV . [id number] [facility] Rx#:[id number] Oral 360 Output: Urine 300 500 275 Other: Voiding Method Urinal Urinal Urinal # Voids 1 - Exam No acute distress, oriented 3. HEENT examination is grossly unremarkable. Mucous membranes are moist. No oral lesions. Neck supple. Full range of motion. No adenopathy thyromegaly or neck vein distention. Cardiovascular examination reveals regular rhythm rate. S1-S2 normal. No S3 or S4. No discernible murmur noted. Lungs reveal diminished breath sounds throughout. No wheezes or rhonchi. There is prolongation on forced maneuver. Breath sounds are diminished throughout. The patient wheezes and coughs on forced maneuver. Abdomen soft bowel sounds are heard. No masses or tenderness. Extremities are intact. No cyanosis clubbing or edema. Skin is without rash or lesion. Neurologic examination is brief but nonfocal. - Labs CBC & Chem 7: 02/20/18 10:19 02/20/18 05:23 Labs: Abnormal Lab Results - Last 24 Hours (Table) 02/19/18 02/19/18 02/19/18 Range/Units 12:42 16:29 20:53 RBC (4.30-5.90) m/uL Hgb (13.0-17.5) gm/dL Hct (39.0-53.0) % MCV (80.0-100.0) fL MCH (25.0-35.0) pg Lymphocytes # (1.0-4.8) k/uL Sodium (137-145) mmol/L BUN (9-20) mg/dL Glucose (74-99) mg/dL POC Glucose (mg/dL) 136 H 155 H (75-99) mg/dL Total Bilirubin (0.2-1.3) mg/dL AST (17-59) U/L ALT (21-72) U/L CK-MB (CK-2) 4.7 H* (0.0-2.4) ng/mL Troponin I 0.061 H* (0.000-0.034) ng/mL Total Protein (6.3-8.2) g/dL Albumin (3.5-5.0) g/dL 02/20/18 02/20/18 02/20/18 Range/Units 05:23 05:23 05:37 RBC 3.47 L (4.30-5.90) m/uL Hgb 8.3 L D (13.0-17.5) gm/dL Hct 26.0 L (39.0-53.0) % MCV 74.9 L (80.0-100.0) fL MCH 23.8 L (25.0-35.0) pg Lymphocytes # 0.3 L (1.0-4.8) k/uL Sodium 135 L (137-145) mmol/L BUN 26 H (9-20) mg/dL Glucose 143 H (74-99) mg/dL POC Glucose (mg/dL) 157 H (75-99) mg/dL Total Bilirubin 0.1 L (0.2-1.3) mg/dL AST 11 L (17-59) U/L ALT 18 L (21-72) U/L CK-MB (CK-2) (0.0-2.4) ng/mL Troponin I (0.000-0.034) ng/mL Total Protein 5.2 L (6.3-8.2) g/dL Albumin 2.6 L (3.5-5.0) g/dL 02/20/18 02/20/18 Range/Units 10:19 11:14 RBC 3.48 L (4.30-5.90) m/uL Hgb 8.1 L (13.0-17.5) gm/dL Hct 26.1 L (39.0-53.0) % MCV 75.1 L (80.0-100.0) fL MCH 23.3 L (25.0-35.0) pg Lymphocytes # 0.2 L (1.0-4.8) k/uL Sodium (137-145) mmol/L BUN (9-20) mg/dL Glucose (74-99) mg/dL POC Glucose (mg/dL) 161 H (75-99) mg/dL Total Bilirubin (0.2-1.3) mg/dL AST (17-59) U/L ALT (21-72) U/L CK-MB (CK-2) (0.0-2.4) ng/mL Troponin I (0.000-0.034) ng/mL Total Protein (6.3-8.2) g/dL Albumin (3.5-5.0) g/dL Microbiology - Last 24 Hours (Table) 02/19/18 00:40 Blood Culture - Preliminary Blood No Growth after 24 hours Assessment and Plan Assessment: Assessment COPD exacerbation complicated by purulent tracheobronchitis Probable severe emphysema Previous history of TIA 60 years of tobacco use at one pack a day or more with ongoing tobacco use with nicotine addiction Hypoxemia secondary to COPD Plan: Plan dated 02/19/2018 The patient will be placed on systemic corticosteroids. The patient should also be on DuoNeb's 4 times a day and when necessary as well as long-acting beta agonist and inhaled corticosteroids. An oral antibiotic would be appropriate. More importantly, the patient is counseled on the importance of smoking cessation and the patient will follow with me in the office post discharge for pulmonary function test and a 6 minute walk distance. Plan dated 02/20/2018 The patient seems be doing a bit better. He's currently on appropriate therapy including short acting beta agonist, short acting muscarinic antagonist, long- acting beta agonist, inhaled corticosteroids, systemic corticosteroids, and oral antibiotics. We put a nicotine patch on him. We encourage him to stop smoking. We'll see him in the office post discharge for 6 minute walk distance and PFTs. Time with Patient: Less than 30
--- NOTE | 2018-02-20 12:14 | P.CONS ---
History of Present Illness - Reason for Consult Consult date: 02/20/18 anemia Requesting physician: Pepe Ruvalcaba - History of Present Illness 72-year-old gentleman with a history of COPD recently placed on home O2 2 L 5 days ago, CVA/TIA, nicotine cigarette dependency admitted with 4 day history of shortness of breath and coughing with productive sputum. Consult requested for anemia. Admission hemoglobin 11.2. MCV 75. Current hemoglobin is 8.1. Platelet 184. INR 1.1 BUN 23. Creatinine 1.4. Denies overt bleeding such as hematemesis hematochezia melena. Denies abdominal pain fever chills or weight loss. No history of EGD colonoscopy; he has refused colonoscopy in the past. No change in bowel habits. Review of Systems Constitutional: Denies fever, chills, sweats, weight gain, or loss. HEENT: Negative for migraines, blurred vision or loss, earaches, drainage, tinnitus, oral mucosal lesions, dysphagia, or odynophagia. Cardiac: Negative for chest pain, arrhythmias, or palpitation. Respiratory: COPD. Nicotine cigarette dependency. Negative for shortness of breath, hemoptysis, cough, or sputum production. Gastrointestinal: See HPI for pertinent findings. Genitourinary: Negative for hematuria, urgency, frequency, polyuria, dysuria, or penile discharge. Musculoskeletal: Negative for muscle aches, swelling, arthritis, and arthralgias. Neurologic: History of CVA TIA.. Endocrine: Negative for thyroid problems. Skin: Negative for rash or itching. Psychiatric: Negative history for depression and anxiety Past Medical History Past Medical History: COPD, CVA/TIA Additional Past Medical History / Comment(s): TIA in 2007 History of Any Multi-Drug Resistant Organisms: None Reported Past Surgical History: No Surgical Hx Reported Additional Past Surgical History / Comment(s): vasectomy Past Anesthesia/Blood Transfusion Reactions: No Reported Reaction Past Psychological History: No Psychological Hx Reported Smoking Status: Current some day smoker Past Alcohol Use History: None Reported Past Drug Use History: None Reported - Past Family History Mother Family Medical History: No Reported History Additional Family Medical History / Comment(s): breast cancer history on mothers side Medications and Allergies Home Medications Medication Instructions Recorded Confirmed Type Ipratropium-Albuterol Nebulize 3 ml INHALATION RT-QID 02/19/18 02/19/18 History [Duoneb 0.5 mg-3 mg/3 ml Soln] Roflumilast [Daliresp] 500 mcg PO DAILY 02/19/18 02/19/18 History Allergies Allergy/AdvReac Type Severity Reaction Status Date / Time No Known Allergies Allergy Verified 02/19/18 09:16 Physical Exam Vitals: Vital Signs Temp Pulse Pulse Resp BP Pulse Ox 02/20/18 11:18 74 02/20/18 11:08 70 02/20/18 08:40 96.7 F L 86 16 124/58 93 L 02/20/18 08:00 78 02/20/18 07:50 76 02/20/18 07:49 74 02/20/18 07:39 72 02/20/18 04:00 97.9 F 60 20 116/70 96 02/20/18 00:00 96.9 F L 77 16 136/65 96 02/19/18 20:14 78 02/19/18 20:04 78 02/19/18 20:03 78 02/19/18 20:00 97.8 F 93 20 144/67 94 L 02/19/18 19:49 77 02/19/18 16:42 68 02/19/18 16:32 68 02/19/18 16:00 97.1 F L 76 18 125/65 95 02/19/18 12:00 97.0 F L 67 78 18 142/65 96 Intake and Output 02/19/18 02/20/18 02/20/18 22:59 06:59 14:59 Intake Total 600 Output Total 500 275 Balance 600 -500 -275 Intake: Intake, IV Titration 600 Amount Sodium Chloride 0.9% 1, 600 000 ml @ 75 mls/hr IV . [id number] [facility] Rx#:[id number] Output: Urine 500 275 Other: Voiding Method Urinal Urinal Urinal # Voids 1 Weight 65 kg General appearance: The patient is alert, oriented, in no acute distress. HET: Head is normocephalic and atraumatic. Pupils are equal and reactive. Oropharynx is clear without lesions. Neck: Supple without lymphadenopathy. Trachea midline. Heart: S1 S2. Regular rate and rhythm. Lungs: Diminished in bases bilaterally.. Abdomen: Soft, nontender, nondistended with bowel sounds. No peritoneal signs. No palpable organomegaly or masses. Extremities: Normal skin color and turgor. No cyanosis, rash, ulceration, clubbing, or edema. Radial and pedal pulses are 2/4 bilaterally. Neurological: No focal deficits. Strength and sensation are grossly intact. Results CBC & Chem 7: 02/20/18 10:19 02/20/18 05:23 Labs: Abnormal Lab Results - Last 24 Hours (Table) 02/19/18 02/19/18 02/19/18 Range/Units 12:42 16:29 20:53 RBC (4.30-5.90) m/uL Hgb (13.0-17.5) gm/dL Hct (39.0-53.0) % MCV (80.0-100.0) fL MCH (25.0-35.0) pg Lymphocytes # (1.0-4.8) k/uL Sodium (137-145) mmol/L BUN (9-20) mg/dL Glucose (74-99) mg/dL POC Glucose (mg/dL) 136 H 155 H (75-99) mg/dL Total Bilirubin (0.2-1.3) mg/dL AST (17-59) U/L ALT (21-72) U/L CK-MB (CK-2) 4.7 H* (0.0-2.4) ng/mL Troponin I 0.061 H* (0.000-0.034) ng/mL Total Protein (6.3-8.2) g/dL Albumin (3.5-5.0) g/dL 02/20/18 02/20/18 02/20/18 Range/Units 05:23 05:23 05:37 RBC 3.47 L (4.30-5.90) m/uL Hgb 8.3 L D (13.0-17.5) gm/dL Hct 26.0 L (39.0-53.0) % MCV 74.9 L (80.0-100.0) fL MCH 23.8 L (25.0-35.0) pg Lymphocytes # 0.3 L (1.0-4.8) k/uL Sodium 135 L (137-145) mmol/L BUN 26 H (9-20) mg/dL Glucose 143 H (74-99) mg/dL POC Glucose (mg/dL) 157 H (75-99) mg/dL Total Bilirubin 0.1 L (0.2-1.3) mg/dL AST 11 L (17-59) U/L ALT 18 L (21-72) U/L CK-MB (CK-2) (0.0-2.4) ng/mL Troponin I (0.000-0.034) ng/mL Total Protein 5.2 L (6.3-8.2) g/dL Albumin 2.6 L (3.5-5.0) g/dL 02/20/18 02/20/18 Range/Units 10:19 11:14 RBC 3.48 L (4.30-5.90) m/uL Hgb 8.1 L (13.0-17.5) gm/dL Hct 26.1 L (39.0-53.0) % MCV 75.1 L (80.0-100.0) fL MCH 23.3 L (25.0-35.0) pg Lymphocytes # 0.2 L (1.0-4.8) k/uL Sodium (137-145) mmol/L BUN (9-20) mg/dL Glucose (74-99) mg/dL POC Glucose (mg/dL) 161 H (75-99) mg/dL Total Bilirubin (0.2-1.3) mg/dL AST (17-59) U/L ALT (21-72) U/L CK-MB (CK-2) (0.0-2.4) ng/mL Troponin I (0.000-0.034) ng/mL Total Protein (6.3-8.2) g/dL Albumin (3.5-5.0) g/dL Microbiology - Last 24 Hours (Table) 02/19/18 00:40 Blood Culture - Preliminary Blood No Growth after 24 hours Assessment and Plan (1) Microcytic hypochromic anemia Narrative/Plan: Suspect iron deficiency possible acute blood loss anemia without overt GI bleeding cannot exclude underlying occult GI blood loss Current Visit: Yes Status: Acute Code(s): D50.9 - IRON DEFICIENCY ANEMIA, UNSPECIFIED SNOMED Code(s): 45401713 (2) Acute exacerbation of chronic obstructive airways disease Current Visit: Yes Status: Acute Code(s): J44.1 - CHRONIC OBSTRUCTIVE PULMONARY DISEASE W (ACUTE) EXACERBATION SNOMED Code(s): 457239521 Plan: 1. Hemoccult stool testing. 2. Iron indices. 3. CBC monitoring. 4. EGD colonoscopy recommended this can be pursued as an outpatient next 1-2 weeks. Continue to optimize respiratory status. We'll reevaluate. Inpatient endoscopic exams contingent on clinical course. Thank you for this kind referral and the opportunity to participate in the care of your patient. This consultation was discussed with Dr. Rodriguez. The impression and plan of care have been directed as dictated.
[2018-02-20] MEDS: PANTOPRAZOLE 40 MG TABLET PO SCH (12:17)
[2018-02-20 16:37] LABS: Glucose,Whole Blood 170 mg/dL (75-99)
--- NOTE | 2018-02-20 16:44 | CDI ---
Last Revision, November 2017 Documentation Clarification Form Date: 02/20/18 From: Charisma Hoang RN, CCDS Admit Date: 02/19/2018 2:18:00 AM Patient Name: Hunter Grover Visit Number: [id number] Discharge Date: ATTENTION: The Clinical Documentation Specialists (CDI) and [facility] Coding Staff appreciate your assistance in clarifying documentation. Please respond to the clarification below the line at the bottom and electronically sign. The CDI & [facility] Coding staff will review the response and follow-up if needed. Please note: Queries are made part of the Legal Health Record. If you have any questions, please contact the author of this message via ITS. Dr. Vahid Mcgregor/Susie Mess DNP Abnormal Troponin, likely secondary to oxygen supply and demand mismatch in your consult and progress notes. Patient history/risk factors: COPD, CVA/TIA, Diabetes, Current smoker Clinical Indicators: Present for worsening cough and dyspnea, respiratory distress with wheezes, rhonchi and decreased breath sounds. Lab findings: pH 7.2, CO2 69, Bicarb 26, Troponin 0.051, 0.079, 0.061, D- dimer 1.6, Chest X-ray: hyperinflation, no focal pneumonia ECHO: EF 55-60 % EKG: Sinus tachycardia with nonspecific ST-T wave changes Vital Signs: 169/81 125 36 99.0 93 % 2/L, 96 % BIPAP Other Clinical Indicators: ER evaluation: patient is hypoxic, placed on BIPAP. Treatment: BIPAP (Titrate O2) Duoneb's per orders Levaquin PO Solu-Medrol IV In your professional opinion, can you please further clarify if you are treating ? Type 2 NM Demand Ischemia without NM Other, please specify Unable to determine Please continue to document in your progress notes and discharge summary in order to capture severity of illness and risk of mortality. Include clinical findings that support your diagnosis. MTDD
[2018-02-20] MEDS: INSULIN ASPART 100 UNIT/ML 1 ML 10 ML VIAL SQ SCH ×2 (17:31→21:00)
[2018-02-20 17:56] LABS: Iron Saturation 3.28 (15.00-50.00)
[2018-02-20 20:50] LABS: Glucose,Whole Blood 142 mg/dL (75-99)
[2018-02-20 22:27] LABS: Basophils % (A) 0 %; Eosinophils % (A) 0 %; HCT 26.6 % (39.0-53.0); Hypochromasia Moderate; Lymphocytes # (A) 0.2 k/uL (1.0-4.8); Lymphocytes % (A) 3 %; MCH 22.7 pg (25.0-35.0); MCHC 30.2 g/dL (31.0-37.0); MCV 75.1 fL (80.0-100.0); Mean Platelet Volume 7.2; Microcytosis Slight; Monocytes # (A) 0.3 k/uL (0-1.0); Monocytes % (A) 4 %; Neutrophils # (A) 7.5 k/uL (1.3-7.7); Neutrophils % (A) 93 %; Platelet Count 188 k/uL (150-450); RBC 3.54 m/uL (4.30-5.90); RDW 15.4 % (11.5-15.5); WBC 8.1 k/uL (3.8-10.6)
[2018-02-21] MEDS: methylPREDNISolone SOD SUCCI 125 MG/2 ML VIAL IV SCH ×3 (00:53→12:20)
[2018-02-21 06:00] LABS: Glucose,Whole Blood 134 mg/dL (75-99)
[2018-02-21] MEDS: INSULIN ASPART 100 UNIT/ML 1 ML 10 ML VIAL SQ SCH ×3 (06:01→12:22)
[2018-02-21] MEDS: PANTOPRAZOLE 40 MG TABLET PO SCH (06:19)
[2018-02-21 06:44] LABS: Basophils % (A) 0 %; Eosinophils % (A) 0 %; HCT 27.8 % (39.0-53.0); HGB 8.7 gm/dL (13.0-17.5); Hypochromasia Moderate; Lymphocytes # (A) 0.3 k/uL (1.0-4.8); Lymphocytes % (A) 5 %; MCH 23.4 pg (25.0-35.0); MCHC 31.2 g/dL (31.0-37.0); Microcytosis Slight; Monocytes # (A) 0.2 k/uL (0-1.0); Monocytes % (A) 3 %; Neutrophils # (A) 6.7 k/uL (1.3-7.7); Neutrophils % (A) 92 %; Platelet Count 215 k/uL (150-450); RBC 3.71 m/uL (4.30-5.90); RDW 14.8 % (11.5-15.5); WBC 7.3 k/uL (3.8-10.6)
[2018-02-21 06:46] LABS: Calcium 8.9 mg/dL (8.4-10.2); Potassium 4.3 mmol/L (3.5-5.1)
[2018-02-21] MEDS: IPRATROPIUM-ALBUTEROL 3 ML NEB INHALATION SCH ×2 (07:35→11:10)
[2018-02-21] MEDS: BUDESONIDE 1 MG/2 ML NEBU INHALATION SCH (07:35)
[2018-02-21] MEDS: FORMOTEROL FUMARATE 20 MCG/2 ML NEBU INHALATION SCH (07:35)
--- NOTE | 2018-02-21 07:40 | P.PN ---
Subjective Progress Note Date: 02/21/18 Principal diagnosis: anemia 72-year-old male evaluated history for iron deficiency microcytic anemia. Stool occult positive even though he denies overt bleeding such as hematemesis hematochezia melena. Reports improvement in his breathing. Afebrile. Denies abdominal pain. Objective - Vital Signs Vital signs: Vital Signs Temp 97.8 F 02/21/18 04:00 Pulse 70 02/21/18 04:00 Resp 16 02/21/18 04:00 BP 137/66 02/21/18 04:00 Pulse Ox 95 02/21/18 04:00 Intake & Output 02/20/18 02/21/18 02/21/18 18:59 06:59 18:59 Intake Total 837 180 Output Total 575 500 Balance 262 -500 180 Weight 65.7 kg Intake: Intake, IV Titration 600 Amount Sodium Chloride 0.9% 1, 600 000 ml @ 75 mls/hr IV . [id number] [facility] Rx#:[id number] Oral 237 180 Output: Urine 575 500 Other: Voiding Method Urinal Urinal # Voids 1 - Exam General appearance: The patient is alert, oriented, in no acute distress. HET: Head is normocephalic and atraumatic. Pupils are equal and reactive. Oropharynx is clear without lesions. Neck: Supple without lymphadenopathy. Trachea midline. Heart: S1 S2. Regular rate and rhythm. Lungs: No crackles or wheezes are heard. Diminished in bases bilaterally Abdomen: Soft, nontender, nondistended with bowel sounds. No peritoneal signs. No palpable organomegaly or masses. Extremities: Normal skin color and turgor. No cyanosis, rash, ulceration, clubbing, or edema. Radial and pedal pulses are 2/4 bilaterally. Neurological: No focal deficits. Strength and sensation are grossly intact. - Labs CBC & Chem 7: 02/21/18 05:51 02/21/18 05:51 Labs: Abnormal Lab Results - Last 24 Hours (Table) 02/20/18 02/20/18 02/20/18 Range/Units 10:19 11:14 16:05 RBC 3.48 L (4.30-5.90) m/uL Hgb 8.1 L (13.0-17.5) gm/dL Hct 26.1 L (39.0-53.0) % MCV 75.1 L (80.0-100.0) fL MCH 23.3 L (25.0-35.0) pg MCHC (31.0-37.0) g/dL Lymphocytes # 0.2 L (1.0-4.8) k/uL Sodium (137-145) mmol/L BUN (9-20) mg/dL Glucose (74-99) mg/dL POC Glucose (mg/dL) 161 H 170 H (75-99) mg/dL 02/20/18 02/20/18 02/21/18 Range/Units 20:49 22:04 05:51 RBC 3.54 L 3.71 L (4.30-5.90) m/uL Hgb 8.0 L 8.7 L (13.0-17.5) gm/dL Hct 26.6 L 27.8 L (39.0-53.0) % MCV 75.1 L 75.0 L (80.0-100.0) fL MCH 22.7 L 23.4 L (25.0-35.0) pg MCHC 30.2 L (31.0-37.0) g/dL Lymphocytes # 0.2 L 0.3 L (1.0-4.8) k/uL Sodium (137-145) mmol/L BUN (9-20) mg/dL Glucose (74-99) mg/dL POC Glucose (mg/dL) 142 H (75-99) mg/dL 02/21/18 02/21/18 Range/Units 05:51 05:58 RBC (4.30-5.90) m/uL Hgb (13.0-17.5) gm/dL Hct (39.0-53.0) % MCV (80.0-100.0) fL MCH (25.0-35.0) pg MCHC (31.0-37.0) g/dL Lymphocytes # (1.0-4.8) k/uL Sodium 136 L (137-145) mmol/L BUN 31 H (9-20) mg/dL Glucose 127 H (74-99) mg/dL POC Glucose (mg/dL) 134 H (75-99) mg/dL Microbiology - Last 24 Hours (Table) 02/19/18 00:40 Blood Culture - Preliminary Blood No Growth after 48 hours 02/20/18 14:15 Gram Stain - Preliminary Sputum Sputum Culture - Preliminary Assessment and Plan (1) Microcytic hypochromic anemia Narrative/Plan: Obscure GI bleed positive stool occult blood with suspected iron deficiency possible acute blood loss anemia without overt GI bleeding. Current Visit: Yes Status: Acute Code(s): D50.9 - IRON DEFICIENCY ANEMIA, UNSPECIFIED SNOMED Code(s): 99874480 (2) Acute exacerbation of chronic obstructive airways disease Current Visit: Yes Status: Acute Code(s): J44.1 - CHRONIC OBSTRUCTIVE PULMONARY DISEASE W (ACUTE) EXACERBATION SNOMED Code(s): 295193862 (3) Stool guaiac positive Current Visit: Yes Status: Acute Code(s): R19.5 - OTHER FECAL ABNORMALITIES SNOMED Code(s): 82630728 Plan: 1. EGD colonoscopy was recommended however patient is declining at this time and like to be discharged and proceed with EGD colonoscopy as an outpatient. Patient stated he will call the GI office to schedule. Continue to monitor CBC in the outpatient setting. Patient was advised to return to the hospital if he has increased shortness of breath chest pain or signs of bleeding such as hematemesis hematochezia or melena. Assessment and plan a care discussed with Dr. Mcgregor
[2018-02-21 08:41] VITALS: RESP 20
[2018-02-21] MEDS: LEVOFLOXACIN 250 MG TAB PO SCH (08:42)
[2018-02-21] MEDS: NICOTINE 21MG/24HR PATCH TRANSDERM SCH (08:42)
[2018-02-21] MEDS ORDERED: SODIUM FERRIC GLUCONAT-SUCROSE 125 MG in SODIUM CHLORIDE 0.9% 100 ML IVPB ONE (09:00)
--- NOTE | 2018-02-21 11:32 | P.DS ---
Providers Date of admission: 02/19/18 02:18 Expected date of discharge: 02/21/18 Attending physician: Pepe Ruvalcaba Consults: 02/19/18 02:18 Consult Physician Routine Consulting Provider: Zander Ho Consult Reason/Comments: Elevated troponin Do you want consulting provider notified?: Yes, Notify in am 02/19/18 09:54 Consult Physician Routine Consulting Provider: Devon Rodriguez Consult Reason/Comments: COPD Do you want consulting provider notified?: Yes 02/20/18 08:55 Consult Physician Routine Consulting Provider: Doreen Mcgregor Consult Reason/Comments: anemia Do you want consulting provider notified?: Yes Primary care physician: Pepe Ruvalcaba [facility] Course: Discharge diagnosis #1 acute purulent bronchitis: Continue Levaquin for 5 more days #2 acute exacerbation of chronic obstructive pulmonary disease: Continue a steroid taper. #3 chronic hypoxic respiratory failure #4 elevated d-dimer, with low probability VQ scan #5 elevated troponin levels: seen evaluated by cardiology. They felt that the elevated troponins were likely related to supply demand mismatch related to severe respiratory distress. Echo shows an EF of 55-60% #6 nicotine dependence discussed smoking cessation. Patient has been refusing nicotine patch #7 iron deficiency anemia with positive fecal occult blood. Hemoglobin at discharge is at 8.7. Iron level is 9. Stool for occult blood is positive. Patient was seen by GI service and instructed that he needs to proceed with an EGD and colonoscopy. Patient has declined testing in the inpatient setting. He wants to complete the EGD and colonoscopy as an outpatient. Patient will receive IV iron prior to discharge #8 hyperglycemia secondary to steroids. He did have an A1c of 6. We'll need to follow-up on blood sugars in the office #9 acute kidney injury improved with IV fluids Hospital course Hunter Grover is a 72-year-old male history of COPD who presented to [facility] emergency room was a chief complaint of severe shortness of breath and cough. He was evaluated in the emergency room, physical exam and chest x-ray were compatible with COPD he was started on IV antibiotics, IV steroids, and inhaled bronchodilators, patient also had slightly elevated troponin and elevated d-dimer he was started on IV heparin in the emergency room , subsequently he had a VQ scan that was low probability for pulmonary embolism. Patient was admitted to telemetry floor pulmonary and cardiology consultation were requested. Patient has a long history of chronic obstructive pulmonary disease with chronic respiratory failure he was recently started on home oxygen he is still smokes a few cigarettes per day despite extensive counseling. Patient denies any previous history of coronary artery disease or congestive heart failure in the past, he did not have any cardiac workup previously. Patient was treated for an acute COPD exacerbation and bronchitis. He improved with IV steroids antibiotics and nebulizer treatments. Pulmonary has cleared him for discharge. He'll continue with the Levaquin for 5 more days. He also have a prednisone taper. And will be discharged home with the Symbicort and albuterol inhaler. He already has nebulizer treatments at home. Patient was seen by cardiology in regards to elevated troponin which was likely a supply demand mismatch due to his respiratory problems. They have cleared him for discharge. Patient had elevated d-dimer VQ scan completed which showed a low probability for PE. Patient also had evidence of iron deficiency anemia and a positive occult blood. Recommending that he has EGD and colonoscopy completed. Patient would prefer to have these tests completed in the outpatient setting. Hemoglobin is 8.7 and he was receiving a dose of IV iron prior to discharge. He'll follow up with Dr. Ruvalcaba in 1 week to have a repeat CBC checked. Patient is medically stable for discharge. He has been for informed that if he starts to have black tarry stools or evidence of bright red blood in his stool to present back to the emergency room Patient Condition at Discharge: Stable Plan - Discharge Summary New Discharge Prescriptions: New Levofloxacin [Levaquin] 250 mg PO DAILY #5 tab predniSONE 10 mg PO DIRECTED #30 tab Ferrous Sulfate [Feosol] 325 mg PO BID #60 tab Albuterol Inhaler [Ventolin Hfa Inhaler] 1 - 2 puff INHALATION Q6HR PRN #1 inhaler PRN Reason: Shortness Of Breath Budesonide-Formot 160-4.5 Mcg [Symbicort 160-4.5 Mcg Inhaler] 2 puff INHALATION BID #1 inhaler Continue Roflumilast [Daliresp] 500 mcg PO DAILY Ipratropium-Albuterol Nebulize [Duoneb 0.5 mg-3 mg/3 ml Soln] 3 ml INHALATION RT-QID Discharge Medication List Ipratropium-Albuterol Nebulize [Duoneb 0.5 mg-3 mg/3 ml Soln] 3 ml INHALATION RT -QID 02/19/18 [History] Roflumilast [Daliresp] 500 mcg PO DAILY 02/19/18 [History] Albuterol Inhaler [Ventolin Hfa Inhaler] 1 - 2 puff INHALATION Q6HR PRN #1 inhaler 02/21/18 [Rx] Budesonide-Formot 160-4.5 Mcg [Symbicort 160-4.5 Mcg Inhaler] 2 puff INHALATION BID #1 inhaler 02/21/18 [Rx] Ferrous Sulfate [Feosol] 325 mg PO BID #60 tab 02/21/18 [Rx] Levofloxacin [Levaquin] 250 mg PO DAILY #5 tab 02/21/18 [Rx] predniSONE 10 mg PO DIRECTED #30 tab 02/21/18 [Rx] Follow up Appointment(s)/Referral(s): Kimani Rodriguez MD [STAFF PHYSICIAN] - 1 Week Devon Rodriguez DO [Doctor of Osteopathic Medicine] - 1 Week Pepe Ruvalcaba MD [Primary Care Provider] - 1 Week Ambulatory/Diagnostic Orders: Complete Blood Count w/diff [LAB.AMB] Location: Determined By Patient Patient Instructions/Handouts: How to Stop Smoking (DC), Colonoscopy (DC), COPD (Chronic Obstructive Pulmonary Disease) (DC), Upper Endoscopy (DC) Activity/Diet/Wound Care/Special Instructions: Pt request to make his own appointments. Patient requested to make his own GI appointment for outpatient EGD/colonoscopy Diet regular Activity as tolerated Check CBC in [address] Ruvalcaba's office Discharge Disposition: HOME SELF-CARE
[2018-02-21 11:34] VITALS: BP 140/64; TEMP 97.6
[2018-02-21 11:53] VITALS: PULSE 80
[2018-02-21 12:35] LABS: Glucose,Whole Blood 143 mg/dL (75-99)
--- NOTE | 2018-02-21 13:42 | P.PN ---
Subjective Progress Note Date: 02/21/18 Principal diagnosis: Acute exacerbation of chronic obstructive pulmonary disease The patient is seen again today 02/21/2018 in follow-up on the selective care unit. He is awake and alert in no acute distress. Sitting up at the bedside. He is breathing easier today as compared to yesterday. He is maintaining O2 saturations in the high 90s on 2 L/m per nasal cannula. He's been afebrile. Hemodynamically stable. Sputum and blood cultures reveal no growth to date. White count 7.3. Hemoglobin 11.7. Creatinine 1.10. Objective - Vital Signs Vital signs: Vital Signs Temp 97.6 F 02/21/18 11:33 Pulse 68 02/21/18 11:33 Resp 20 02/21/18 11:33 BP 140/64 02/21/18 11:33 Pulse Ox 98 02/21/18 11:33 Intake & Output 02/20/18 02/21/18 02/21/18 18:59 06:59 18:59 Intake Total 837 180 Output Total 575 500 475 Balance 262 -500 -295 Weight 65.7 kg Intake: Intake, IV Titration 600 Amount Sodium Chloride 0.9% 1, 600 000 ml @ 75 mls/hr IV . [id number] Rx#:[id number] Oral 237 180 Output: Urine 575 500 475 Other: Voiding Method Urinal Urinal Urinal # Voids 1 - Exam GENERAL EXAM: Alert, comfortable in no apparent distress. HEAD: Normocephalic. EYES: Normal reaction of pupils, equal size. NOSE: Clear with pink turbinates. THROAT: No erythema or exudates. NECK: No masses, no JVD. CHEST: No chest wall deformity. LUNGS: Equal air entry with end expiratory wheeze. Diminished. CVS: S1 and S2 normal with no audible murmur, regular rhythm. ABDOMEN: No hepatosplenomegaly, normal bowel sounds, no guarding or rigidity. SPINE: No scoliosis or deformity SKIN: No rashes CENTRAL NERVOUS SYSTEM: No focal deficits, tone is normal in all 4 extremities. EXTREMITIES: There is no peripheral edema. No clubbing, no cyanosis. Peripheral pulses are intact. - Labs CBC & Chem 7: 02/21/18 05:51 02/21/18 05:51 Labs: Abnormal Lab Results - Last 24 Hours (Table) 02/20/18 02/20/18 02/20/18 Range/Units 05:23 16:05 20:49 RBC (4.30-5.90) m/uL Hgb (13.0-17.5) gm/dL Hct (39.0-53.0) % MCV (80.0-100.0) fL MCH (25.0-35.0) pg MCHC (31.0-37.0) g/dL Lymphocytes # (1.0-4.8) k/uL Sodium (137-145) mmol/L BUN (9-20) mg/dL Glucose (74-99) mg/dL POC Glucose (mg/dL) 170 H 142 H (75-99) mg/dL Iron 9 L (65-175) ug/dL Iron Saturation 3.28 L (15.00-50.00) 02/20/18 02/21/18 02/21/18 Range/Units 22:04 05:51 05:51 RBC 3.54 L 3.71 L (4.30-5.90) m/uL Hgb 8.0 L 8.7 L (13.0-17.5) gm/dL Hct 26.6 L 27.8 L (39.0-53.0) % MCV 75.1 L 75.0 L (80.0-100.0) fL MCH 22.7 L 23.4 L (25.0-35.0) pg MCHC 30.2 L (31.0-37.0) g/dL Lymphocytes # 0.2 L 0.3 L (1.0-4.8) k/uL Sodium 136 L (137-145) mmol/L BUN 31 H (9-20) mg/dL Glucose 127 H (74-99) mg/dL POC Glucose (mg/dL) (75-99) mg/dL Iron (65-175) ug/dL Iron Saturation (15.00-50.00) 02/21/18 02/21/18 Range/Units 05:58 11:37 RBC (4.30-5.90) m/uL Hgb (13.0-17.5) gm/dL Hct (39.0-53.0) % MCV (80.0-100.0) fL MCH (25.0-35.0) pg MCHC (31.0-37.0) g/dL Lymphocytes # (1.0-4.8) k/uL Sodium (137-145) mmol/L BUN (9-20) mg/dL Glucose (74-99) mg/dL POC Glucose (mg/dL) 134 H 143 H (75-99) mg/dL Iron (65-175) ug/dL Iron Saturation (15.00-50.00) Microbiology - Last 24 Hours (Table) 02/19/18 00:40 Blood Culture - Preliminary Blood No Growth after 48 hours 02/20/18 14:15 Gram Stain - Preliminary Sputum Sputum Culture - Preliminary Assessment and Plan Assessment: Assessment COPD exacerbation complicated by purulent tracheobronchitis Probable severe emphysema Acute hypoxic respiratory failure secondary to above. Previous history of TIA 60 years of tobacco use at one pack a day or more with ongoing tobacco use with nicotine addiction Plan: The patient was seen and evaluated by Dr. Rodriguez. He is cleared for discharge from the pulmonary standpoint. He should continue with nebulized treatments 4 times a day along with the long-acting bronchodilator. He can complete his course of antibiotics. Complete a prednisone taper. He is again educated regarding the importance of complete smoking cessation. He would benefit from an office visit with us to perform full pulmonary function testing to evaluate the severity of her suspected COPD. He is agreeable to the plan. I, the cosigning physician, performed a history & physical examination of the patient. Lungs sounds have bilateral end expiratory wheeze. Diminished. Maintaining good O2 saturations in the 90s on 2 L/m per nasal cannula. I discussed the assessment and plan of care with my nurse practitioner, Guillermina De La Fuente. I attest to the above note as dictated by her.
== END 2018-02-21 13:35 | disposition home or self-care (01) | DRG 190 ==
LOC: EC 00:26 → 6SEL 02:18
PROVIDERS: ADMIT Internal Medicine; ATTEND Internal Medicine
DX: J43.9 Emphysema, unspecified (principal); J96.21 Acute and chronic respiratory failure with hypoxia; N17.9 Acute kidney failure, unspecified; D62 Acute posthemorrhagic anemia; K92.2 Gastrointestinal hemorrhage, unspecified; J20.9 Acute bronchitis, unspecified; R79.1 Abnormal coagulation profile; T38.0X5A Adverse effect of glucocorticoids and synthetic analogues, initial encounter; R73.9 Hyperglycemia, unspecified; R74.8 Abnormal levels of other serum enzymes; F17.210 Nicotine dependence, cigarettes, uncomplicated; Z86.73 Personal history of transient ischemic attack (TIA), and cerebral infarction without residual deficits; Z71.6 Tobacco abuse counseling
CPT/HCPCS: 36415; 71045; 78582; 80048; 80053; 80061; 82272; 82550; 82553; 82728; 82803; 83036; 83540; 83550; 83605; 83735; 83880; 84484; 85025; 85379; 85610; 85730; 87040; 87070; 87205; 93005; 93306; 94640; 94644; 94760; 96365; 96368; 96375; 96376; 99291

== ENCOUNTER 2020-01-22 13:11 | Inpatient (IN) | payer MEDICARE ==
[2020-01-22] MEDS ORDERED: SODIUM CHLORIDE 0.9% 1,000 ML IV STA (13:35)
--- NOTE | 2020-01-22 13:38 | ED ---
General Adult HPI - General Chief complaint: Syncope Stated complaint: Syncope Time Seen by Provider: 01/22/20 13:15 Source: patient, old records reviewed (CT chest done this month negative for pulmonary embolism) Mode of arrival: EMS Limitations: no limitations - History of Present Illness Initial comments: Patient is a pleasant 74-year-old male presenting to the emergency Department with syncopal versus near-syncopal episode. Patient states she did not receive his breathing treatment on time and was walking around and exerting himself. Patient did feel short off it is not abnormal for him and then had an episode where he became less responsive. Patient does not believe he fully passed out however is not 100% clear on this. Chest or back pain. No abdominal pain. No headache or weakness or confusion. Patient states breathing is near normal for him at this time as he did receive a treatment following the episode. No leg pain or leg swelling. Patient was in the hospital earlier in the month. - Related Data Home Medications Medication Instructions Recorded Confirmed Ipratropium-Albuterol Nebulize 3 ml INHALATION RT-Q4H 02/19/18 01/03/20 [Duoneb 0.5 mg-3 mg/3 ml Soln] ALPRAZolam [Xanax] 0.25 mg PO BID PRN 01/03/20 01/03/20 Albuterol Inhaler [Ventolin Hfa 1 - 2 puff INHALATION RT-Q4H PRN 01/03/20 01/03/20 Inhaler] Budesonide-Formot 160-4.5 Mcg 2 puff INHALATION RT-BID 01/03/20 01/03/20 [Symbicort 160-4.5 Mcg Inhaler] predniSONE 5 mg PO DAILY 01/03/20 01/03/20 Previous Rx's Medication Instructions Recorded Budesonide [Pulmicort] 1 mg INHALATION RT-BID ml 01/11/20 Ferrous Sulfate [Iron (65 MG 325 mg PO BID tab 01/11/20 Elemental)] Levofloxacin [Levaquin] 500 mg PO DAILY 5 Days #5 tab 01/11/20 Metoprolol Tartrate [Lopressor] 25 mg PO BID tab 01/11/20 Nicotine 14Mg/24Hr Patch [Habitrol] 1 patch TRANSDERM DAILY patch 01/11/20 amLODIPine [Norvasc] 5 mg PO DAILY tab 01/11/20 predniSONE 10 mg PO DIRECTED 16 Days #40 01/11/20 tab Allergies Allergy/AdvReac Type Severity Reaction Status Date / Time No Known Allergies Allergy Verified 01/22/20 13:24 Review of Systems ROS Statement: Those systems with pertinent positive or pertinent negative responses have been documented in the HPI. ROS Other: All systems not noted in ROS Statement are negative. Constitutional: Denies: fever Eyes: Denies: eye pain ENT: Denies: ear pain Respiratory: Reports: as per HPI. Denies: cough Cardiovascular: Denies: chest pain Gastrointestinal: Denies: abdominal pain Genitourinary: Denies: dysuria Musculoskeletal: Denies: back pain Skin: Denies: rash Neurological: Denies: headache, weakness, confusion Past Medical History Past Medical History: COPD, CVA/TIA Additional Past Medical History / Comment(s): TIA in 2007, Severe oxygen dependent, steroid dependent chronic obstructive pulmonary disease with an FEV1 value 29% of predicted History of Any Multi-Drug Resistant Organisms: None Reported Past Surgical History: No Surgical Hx Reported Additional Past Surgical History / Comment(s): vasectomy Past Anesthesia/Blood Transfusion Reactions: No Reported Reaction Past Psychological History: No Psychological Hx Reported Smoking Status: Current every day smoker Past Alcohol Use History: None Reported Past Drug Use History: None Reported - Past Family History Mother Family Medical History: No Reported History Additional Family Medical History / Comment(s): breast cancer history on mothers side General Exam Limitations: no limitations General appearance: alert, in no apparent distress Head exam: Present: normocephalic Eye exam: Present: normal appearance, PERRL, EOMI ENT exam: Present: normal oropharynx Neck exam: Present: normal inspection Respiratory exam: Present: decreased breath sounds Cardiovascular Exam: Present: regular rate, normal rhythm Expanded Peripheral pulses: 2+: Radial (R), Radial (L), Dorsalis Pedis (R), Dorsalis Pedis (L) GI/Abdominal exam: Present: soft. Absent: tenderness Extremities exam: Present: normal inspection. Absent: pedal edema, calf tenderness Neurological exam: Present: alert Psychiatric exam: Present: normal affect, normal mood Skin exam: Present: normal color Course Vital Signs 01/22/20 01/22/20 01/22/20 13:13 14:00 15:00 Temperature 98.1 F Pulse Rate 79 89 85 Respiratory 16 18 16 Rate Blood Pressure 103/51 103/51 106/52 O2 Sat by Pulse 98 100 99 Oximetry EKG Findings - EKG Comments: EKG Findings:: Normal sinus rhythm 78. DC 118. QRS 76. QT 362. QTC 412. Normal axis. Normal QRS. Prominent T waves. Medical Decision Making - Medical Decision Making Patient reevaluated and resting comfortably in bed. Patient updated on results and plan. Case discussed in detail with Dr. Ruvalcaba, who will admit his patient with cardiology consult. IV antibiotics will be started. Patient does not meet sepsis criteria. - Lab Data Result diagrams: 01/22/20 13:36 01/22/20 13:36 Lab Results 01/22/20 01/22/20 01/22/20 Range/Units 13:36 13:36 13:36 WBC 18.7 H (3.8-10.6) k/uL RBC 3.73 L (4.30-5.90) m/uL Hgb 8.7 L (13.0-17.5) gm/dL Hct 28.9 L (39.0-53.0) % MCV 77.6 L (80.0-100.0) fL MCH 23.5 L (25.0-35.0) pg MCHC 30.2 L (31.0-37.0) g/dL RDW 21.2 H (11.5-15.5) % Plt Count 174 (150-450) k/uL Neutrophils % 96 % Lymphocytes % 1 % Monocytes % 2 % Eosinophils % 0 % Basophils % 0 % Neutrophils # 18.0 H (1.3-7.7) k/uL Lymphocytes # 0.3 L (1.0-4.8) k/uL Monocytes # 0.3 (0-1.0) k/uL Eosinophils # 0.0 (0-0.7) k/uL Basophils # 0.0 (0-0.2) k/uL Hypochromasia Marked Anisocytosis Moderate Microcytosis Slight PT 9.3 (9.0-12.0) sec INR 0.9 (<1.2) APTT 18.6 L (22.0-30.0) sec Sodium 131 L (137-145) mmol/L Potassium 4.9 (3.5-5.1) mmol/L Chloride 97 L (98-107) mmol/L Carbon Dioxide 25 (22-30) mmol/L Anion Gap 9 mmol/L BUN 32 H (9-20) mg/dL Creatinine 0.95 (0.66-1.25) mg/dL Est GFR (CKD-EPI)AfAm >90 (>60 ml/min/1.73 sqM) Est GFR (CKD-EPI)NonAf 78 (>60 ml/min/1.73 sqM) Glucose 229 H (74-99) mg/dL Calcium 8.3 L (8.4-10.2) mg/dL Magnesium 1.8 (1.6-2.3) mg/dL Total Bilirubin 0.4 (0.2-1.3) mg/dL AST 22 (17-59) U/L ALT 35 (4-49) U/L Alkaline Phosphatase 89 (38-126) U/L Creatine Kinase 22 L (55-170) U/L Troponin I (0.000-0.034) ng/mL Total Protein 5.5 L (6.3-8.2) g/dL Albumin 2.8 L (3.5-5.0) g/dL Urine Color Urine Appearance (Clear) Urine pH (5.0-8.0) Ur Specific Snyder (1.001-1.035) Urine Protein (Negative) Urine Glucose (UA) (Negative) Urine Ketones (Negative) Urine Blood (Negative) Urine Nitrite (Negative) Urine Bilirubin (Negative) Urine Urobilinogen (<2.0) mg/dL Ur Leukocyte Esterase (Negative) Urine RBC (0-5) /hpf Urine WBC (0-5) /hpf Urine WBC Clumps (None) /hpf Urine Mucus (None) /hpf Urine Yeast (Budding) (None) /hpf 01/22/20 01/22/20 Range/Units 13:36 14:18 WBC (3.8-10.6) k/uL RBC (4.30-5.90) m/uL Hgb (13.0-17.5) gm/dL Hct (39.0-53.0) % MCV (80.0-100.0) fL MCH (25.0-35.0) pg MCHC (31.0-37.0) g/dL RDW (11.5-15.5) % Plt Count (150-450) k/uL Neutrophils % % Lymphocytes % % Monocytes % % Eosinophils % % Basophils % % Neutrophils # (1.3-7.7) k/uL Lymphocytes # (1.0-4.8) k/uL Monocytes # (0-1.0) k/uL Eosinophils # (0-0.7) k/uL Basophils # (0-0.2) k/uL Hypochromasia Anisocytosis Microcytosis PT (9.0-12.0) sec INR (<1.2) APTT (22.0-30.0) sec Sodium (137-145) mmol/L Potassium (3.5-5.1) mmol/L Chloride (98-107) mmol/L Carbon Dioxide (22-30) mmol/L Anion Gap mmol/L BUN (9-20) mg/dL Creatinine (0.66-1.25) mg/dL Est GFR (CKD-EPI)AfAm (>60 ml/min/1.73 sqM) Est GFR (CKD-EPI)NonAf (>60 ml/min/1.73 sqM) Glucose (74-99) mg/dL Calcium (8.4-10.2) mg/dL Magnesium (1.6-2.3) mg/dL Total Bilirubin (0.2-1.3) mg/dL AST (17-59) U/L ALT (4-49) U/L Alkaline Phosphatase (38-126) U/L Creatine Kinase (55-170) U/L Troponin I 0.014 (0.000-0.034) ng/mL Total Protein (6.3-8.2) g/dL Albumin (3.5-5.0) g/dL Urine Color Yellow Urine Appearance Cloudy (Clear) Urine pH 6.5 (5.0-8.0) Ur Specific Snyder 1.017 (1.001-1.035) Urine Protein Trace H (Negative) Urine Glucose (UA) 1+ H (Negative) Urine Ketones Negative (Negative) Urine Blood Moderate H (Negative) Urine Nitrite Negative (Negative) Urine Bilirubin Negative (Negative) Urine Urobilinogen <2.0 (<2.0) mg/dL Ur Leukocyte Esterase Large H (Negative) Urine RBC 81 H (0-5) /hpf Urine WBC 171 H (0-5) /hpf Urine WBC Clumps Moderate H (None) /hpf Urine Mucus Rare H (None) /hpf Urine Yeast (Budding) Many H (None) /hpf - Radiology Data Radiology results: image reviewed (Chest x-ray shows small posterior effusion) Disposition Clinical Impression: Acute exacerbation of chronic obstructive airways disease, Syncope, UTI (urinary tract infection) Disposition: ADMITTED IP TO THIS HOSP Is patient prescribed a controlled substance at d/c from ED?: No Referrals: Pepe Ruvalcaba MD [Primary Care Provider] - 1-2 days Decision Time: 15:44
[2020-01-22 13:50] LABS: Anisocytosis Moderate; Basophils % (A) 0 %; Eosinophils % (A) 0 %; HCT 28.9 % (39.0-53.0); HGB 8.7 gm/dL (13.0-17.5); Hypochromasia Marked; Lymphocytes # (A) 0.3 k/uL (1.0-4.8); Lymphocytes % (A) 1 %; MCH 23.5 pg (25.0-35.0); MCHC 30.2 g/dL (31.0-37.0); MCV 77.6 fL (80.0-100.0); Mean Platelet Volume 7.3; Microcytosis Slight; Monocytes # (A) 0.3 k/uL (0-1.0); Monocytes % (A) 2 %; Neutrophils % (A) 96 %; Platelet Count 174 k/uL (150-450); RBC 3.73 m/uL (4.30-5.90); RDW 21.2 % (11.5-15.5); WBC 18.7 k/uL (3.8-10.6)
[2020-01-22 13:59] LABS: ALT 35 U/L (4-49); AST 22 U/L (17-59); African American GFR (CKD) >90 (>60 ml/min/1.73 sqM); Albumin 2.8 g/dL (3.5-5.0); Alkaline Phosphatase 89 U/L (38-126); Anion Gap 9 mmol/L; Blood Urea Nitrogen 32 mg/dL (9-20); Calcium 8.3 mg/dL (8.4-10.2); Carbon Dioxide 25 mmol/L (22-30); Chloride 97 mmol/L (98-107); Creatine Kinase 22 U/L (55-170); Glucose 229 mg/dL (74-99); Magnesium 1.8 mg/dL (1.6-2.3); Non-African American GFR(CKD) 78 (>60 ml/min/1.73 sqM); Potassium 4.9 mmol/L (3.5-5.1); Sodium 131 mmol/L (137-145); Total Bilirubin 0.4 mg/dL (0.2-1.3); Total Protein 5.5 g/dL (6.3-8.2)
[2020-01-22 14:11] LABS: INR 0.9 (<1.2); Prothrombin Time 9.3 sec (9.0-12.0)
[2020-01-22 14:12] LABS: Partial Thromboplastin Time 18.6 sec (22.0-30.0)
--- NOTE | 2020-01-22 14:30 | XR ---
EXAMINATION TYPE: XR chest 2V DATE OF EXAM: 01/22/2020 COMPARISON: 01/08/2020 INDICATION: Patient fainted, loss of consciousness TECHNIQUE: Frontal and lateral views of the chest are obtained. FINDINGS: The heart size is normal. The pulmonary vasculature is normal. Small posterior pleural effusion may be present.. IMPRESSION: 1. Small posterior pleural effusion
[2020-01-22 14:38] LABS: Appearance,Urine Cloudy (Clear); Bilirubin,Urine Negative (Negative); Blood,Urine Moderate (Negative); Budding Yeast,Urine Many /hpf; Color,Urine Yellow; Glucose,Urine (UA) 1+ (Negative); Ketones,Urine Negative (Negative); Leukocyte Esterase,Urine Large (Negative); Mucus,Urine Rare /hpf; Nitrite,Urine Negative (Negative); PH, Urine 6.5 (5.0-8.0); Protein,Urine Trace (Negative); RBC,Urine 81 /hpf (0-5); Specific Gravity,Urine 1.017 (1.001-1.035); Urobilinogen,Urine <2.0 mg/dL (<2.0); WBC,Urine 171 /hpf (0-5)
[2020-01-22] MEDS ORDERED: IPRATROPIUM-ALBUTEROL 3 ML NEB INHALATION PRN (15:44)
[2020-01-22] MEDS ORDERED: methylPREDNISolone SOD SUCCI 125 MG/2 ML VIAL IV ONE (16:15)
[2020-01-22] MEDS: IPRATROPIUM-ALBUTEROL 3 ML NEB INHALATION SCH ×2 (16:57→20:12)
[2020-01-22 20:08] LABS: Glucose,Whole Blood 199 mg/dL (75-99)
[2020-01-22] MEDS ORDERED: ALPRAZolam 0.25 MG TAB PO PRN (22:08)
[2020-01-22] MEDS ORDERED: BISACODYL 10 MG SUPP RECTAL PRN (22:08)
[2020-01-22] MEDS ORDERED: MAGNESIUM HYDROXIDE 2,400 MG/10 ML CUP PO PRN (22:08)
[2020-01-22] MEDS ORDERED: ALBUTEROL NEBULIZED 2.5 MG/3 ML INHALATION PRN (22:08)
[2020-01-22] MEDS: METOPROLOL TARTRATE 25 MG TAB PO SCH (22:38)
[2020-01-22] MEDS: TAMSULOSIN 0.4 MG CAP.ER.24H PO SCH (22:38)
[2020-01-22] MEDS: methylPREDNISolone SOD SUCCI 125 MG/2 ML VIAL IV SCH (22:38)
[2020-01-22] MEDS: NICOTINE 14MG/24HR PATCH TRANSDERM SCH (22:38)
[2020-01-22] MEDS: FERROUS SULFATE 325 MG TAB PO SCH (22:38)
[2020-01-23] MEDS: methylPREDNISolone SOD SUCCI 125 MG/2 ML VIAL IV SCH ×3 (06:19→17:51)
[2020-01-23 07:02] LABS: Glucose,Whole Blood 151 mg/dL (75-99)
[2020-01-23] MEDS: IPRATROPIUM-ALBUTEROL 3 ML NEB INHALATION SCH ×4 (09:10→20:08)
[2020-01-23] MEDS: NICOTINE 14MG/24HR PATCH TRANSDERM SCH (09:32)
[2020-01-23] MEDS: METOPROLOL TARTRATE 25 MG TAB PO SCH ×2 (09:32→21:03)
[2020-01-23] MEDS: amLODIPine 5 MG TAB PO SCH (09:32)
[2020-01-23] MEDS: FERROUS SULFATE 325 MG TAB PO SCH ×2 (09:32→21:03)
[2020-01-23] MEDS: TAMSULOSIN 0.4 MG CAP.ER.24H PO SCH ×2 (09:32→21:03)
[2020-01-23 11:13] LABS: Glucose,Whole Blood 221 mg/dL (75-99)
[2020-01-23] MEDS: INSULIN ASPART (NovoLOG) 100 UNIT/ML VIAL SQ SCH ×3 (13:11→21:03)
--- NOTE | 2020-01-23 14:21 | P.CRDCN ---
History of Present Illness Consult date: 01/23/20 Chief complaint: Presyncope History of present illness: This is a very pleasant 74-year-old gentleman who was transferred from [facility] facility to the hospital for further evaluation off syncope. The patient was receiving rehab at the [facility] after recent hospital admission with pneumonia and COPD exacerbation. At that point we consulted to see the patient for further evaluation of cardiac arrhythmia and the patient was diagnosed with multifocal atrial tachycardia. An echocardiogram was performed during that admission and revealed impaired LV function with EF between 40-45%. The patient was discharged to [facility] in stable medical condition. Yesterday when he was doing rehab he felt dizzy and lightheaded and almost lost his consciousness. The patient stated that he remember everything and he does not believe that he lost his consciousness. He did not have any symptoms of chest pain or chest discomfort, no increasing in the shortness of breath, dizziness, heart racing, or feeling of nausea or vomiting. The EKG this time revealed sinus rhythm without any ischemic ST or T-wave abnormalities. The first set of troponin came in to be within normal limits. The chest x-ray did not show any acute abnormalities. The UA was done and revealed what it seems to be UTI and currently the patient is on antibiotic. Past Medical History Past Medical History: COPD, CVA/TIA Additional Past Medical History / Comment(s): TIA in 2007, Severe oxygen dependent, steroid dependent chronic obstructive pulmonary disease with an FEV1 value 29% of predicted History of Any Multi-Drug Resistant Organisms: None Reported Past Surgical History: No Surgical Hx Reported Additional Past Surgical History / Comment(s): vasectomy Past Anesthesia/Blood Transfusion Reactions: No Reported Reaction Past Psychological History: No Psychological Hx Reported Smoking Status: Current every day smoker Past Alcohol Use History: None Reported Past Drug Use History: None Reported - Past Family History Mother Family Medical History: No Reported History Additional Family Medical History / Comment(s): breast cancer history on mothers side Medications and Allergies Home Medications Medication Instructions Recorded Confirmed Type Ipratropium-Albuterol Nebulize 3 ml INHALATION RT-Q4H 02/19/18 01/22/20 History [Duoneb 0.5 mg-3 mg/3 ml Soln] ALPRAZolam [Xanax] 0.25 mg PO BID PRN 01/03/20 01/22/20 History Albuterol Inhaler [Ventolin Hfa 1 - 2 puff INHALATION RT-Q4H PRN 01/03/20 01/22/20 History Inhaler] Budesonide-Formot 160-4.5 Mcg 2 puff INHALATION RT-BID 01/03/20 01/22/20 History [Symbicort 160-4.5 Mcg Inhaler] Ferrous Sulfate [Iron (65 MG 325 mg PO BID tab 01/11/20 01/22/20 Rx Elemental)] Metoprolol Tartrate [Lopressor] 25 mg PO BID tab 01/11/20 01/22/20 Rx Nicotine 14Mg/24Hr Patch [Habitrol] 1 patch TRANSDERM DAILY patch 01/11/20 01/22/20 Rx amLODIPine [Norvasc] 5 mg PO DAILY tab 01/11/20 01/22/20 Rx Bisacodyl [Dulcolax] 10 mg RECTAL DAILY PRN 01/22/20 01/22/20 History Magnesium Hydroxide [Milk of 7,200 mg PO DAILY PRN 01/22/20 01/22/20 History Magnesia Concentrate] Na Phos,M-B/Na Phos,Di-Ba [Fleet 133 ml RECTAL DAILY PRN 01/22/20 01/22/20 History Adult] Tamsulosin HCl [Flomax] 0.4 mg PO BID 01/22/20 01/22/20 History predniSONE See Taper PO DAILY 01/22/20 01/22/20 History Allergies Allergy/AdvReac Type Severity Reaction Status Date / Time No Known Allergies Allergy Verified 01/22/20 18:48 Physical Exam Vitals: Vital Signs Temp Pulse Pulse Pulse Resp BP BP 01/23/20 13:12 76 01/23/20 13:01 72 01/23/20 12:38 97.8 F 63 18 113/46 01/23/20 09:21 80 01/23/20 09:10 80 01/23/20 05:00 97.9 F 66 16 118/57 01/22/20 21:16 98.6 F 84 16 119/64 01/22/20 20:31 78 01/22/20 20:12 78 01/22/20 18:00 98 F 87 16 117/58 01/22/20 17:05 85 18 01/22/20 17:00 98 F 83 14 102/57 01/22/20 16:57 80 18 02/21/20 16:46 98.2 F 78 18 121/58 01/22/20 16:00 81 18 116/55 01/22/20 15:00 85 16 106/52 Pulse Ox 01/23/20 13:12 01/23/20 13:01 01/23/20 12:38 100 01/23/20 09:21 01/23/20 09:10 01/23/20 05:00 99 01/22/20 21:16 100 01/22/20 20:31 01/22/20 20:12 01/22/20 18:00 96 01/22/20 17:05 01/22/20 17:00 100 01/22/20 16:57 98 01/22/20 16:46 99 01/22/20 16:00 98 01/22/20 15:00 99 Intake and Output 01/22/20 01/23/20 01/23/20 22:59 06:59 14:59 Intake Total 400 590 Output Total 400 Balance 400 190 Intake: Intake, IV Titration 400 Amount Sodium Chloride 0.9% 1, 400 000 ml @ 100 mls/hr IV . Q10H STA Rx#:[id number] Oral 590 Output: Urine 400 Other: Voiding Method Indwelling Catheter Indwelling Catheter Weight 60.781 kg - Constitutional General appearance: no acute distress - Respiratory Respiratory: bilateral: CTA - Cardiovascular Rhythm: regular Heart sounds: normal: S1, S2 Results 01/22/20 13:36 01/22/20 13:36 Cardiac Enzymes 01/22/20 Range/Units 13:36 Troponin I 0.014 (0.000-0.034) ng/mL Current Medications Generic Name Dose Route Start Last Admin Trade Name Freq PRN Reason Stop Dose Admin Albuterol Sulfate 2.5 mg 01/22/20 22:08 Ventolin Nebulized INHALATION RT-Q4H PRN Shortness Of Breath Albuterol/Ipratropium 3 ml 01/22/20 16:00 01/23/20 13:01 Duoneb 0.5 Mg-3 Mg/3 Ml Soln INHALATION 3 ml RT-QID JAZMÍN Administration Albuterol/Ipratropium 3 ml 01/22/20 15:44 Duoneb 0.5 Mg-3 Mg/3 Ml Soln INHALATION RT-Q4H PRN Shortness Of Breath Or Wheezing Alprazolam 0.25 mg 01/22/20 22:08 Xanax PO BID PRN Anxiety Amlodipine Besylate 5 mg 01/23/20 09:00 01/23/20 09:32 Norvasc PO 5 mg DAILY JAZMÍN Administration Bisacodyl 10 mg 01/22/20 22:08 Dulcolax RECTAL DAILY PRN Constipation Ferrous Sulfate 325 mg 01/22/20 22:15 01/23/20 09:32 Feosol PO 325 mg BID JAZMÍN Administration Ceftriaxone Sodium 1 gm/ 50 mls @ 100 mls/hr 01/23/20 09:00 01/23/20 09:32 Sodium Chloride IVPB 100 mls/hr Q24HR JAZMÍN Administration Insulin Aspart 0 unit 01/23/20 12:30 01/23/20 13:11 Novolog SQ 7 unit ACHS JAZMÍN Administration Protocol Magnesium Hydroxide 2,400 mg 01/22/20 22:08 Milk Of Magnesia PO DAILY PRN Constipation Methylprednisolone Sodium Succinate 60 mg 01/23/20 00:00 01/23/20 13:10 Solu-Medrol IV 60 mg Q6HR JAZMÍN Administration Metoprolol Tartrate 25 mg 01/22/20 22:15 01/23/20 09:32 Lopressor PO 25 mg BID JAZMÍN Administration Nicotine 1 patch 01/22/20 22:15 01/23/20 09:32 Habitrol 14mg/24hr Patch TRANSDERM 1 patch DAILY JAZMÍN Administration Tamsulosin HCl 0.4 mg 01/22/20 22:15 01/23/20 09:32 Flomax PO 0.4 mg BID JAZMÍN Administration Intake and Output 01/22/20 01/23/20 01/23/20 22:59 06:59 14:59 Intake Total 400 590 Output Total 400 Balance 400 190 Intake: Intake, IV Titration 400 Amount Sodium Chloride 0.9% 1, 400 000 ml @ 100 mls/hr IV . Q10H STA Rx#:[id number] Oral 590 Output: Urine 400 Other: Voiding Method Indwelling Catheter Indwelling Catheter Weight 60.781 kg 01/22/20 13:36 01/22/20 13:36 Assessment and Plan Assessment: Assessment #1 urinary tract infection #2 presyncope #3 history of multifocal atrial tachycardia #4 cardiomyopathy with EF between 40-45% Plan #1 currently the patient is on antibiotic for the UTI #2 rule out acute coronary event. We'll follow-up with the serial cardiac enzymes #3 rule out cardiac arrhythmia on a substrate of cardiomyopathy #4 continue monitor the heart rate and monitor for any arrhythmia #5 follow-up with the patient Thank you for allowing us participate in his care
[2020-01-23 14:27] VITALS: BMI 18.6
--- NOTE | 2020-01-23 16:01 | ECHOF ---
Referral Reason:syncope MEASUREMENTS -------- HEIGHT: 180.3 cm WEIGHT: 60.8 kg BP: 113/46 IVSd: 1.4 cm (0.6 - 1.1) LVIDd: 4.5 cm (3.9 - 5.3) LVPWd: 1.7 cm (0.6 - 1.1) IVSs: 1.7 cm LVIDs: 3.3 cm LVPWs: 1.4 cm IVSd: 1.0 cm (0.6 - 1.1) LVIDd: 6.0 cm (3.9 - 5.3) LVPWd: 1.4 cm (0.6 - 1.1) IVSs: 1.5 cm LVIDs: 3.7 cm LVPWs: 2.0 cm EDV(Teich): 182 ml ESV(Teich): 60 ml EF(Teich): 67 % %FS: 38 % SV(Teich): 122 ml FINDINGS -------- Sinus rhythm. This was a technically difficult study with suboptimal apical views. Limited Study Pt has severe COPD. Sitting up. The left ventricular size is normal. There is moderate concentric left ventricular hypertrophy. O verall left ventricular systolic function is low-normal with, an EF between 50 - 55 %. There is a trivial pericardial effusion present. CONCLUSIONS -------- 1. Sinus rhythm. 2. This was a technically difficult study with suboptimal apical views. 3. Limited Study 4. Pt has severe COPD. Sitting up. 5. The left ventricular size is normal. 6. There is moderate concentric left ventricular hypertrophy. 7. Overall left ventricular systolic function is low-normal with, an EF between 50 - 55 %. 8. There is a trivial pericardial effusion present. [employer]: Zina Garcia, [facility]
--- NOTE | 2020-01-23 16:04 | US ---
EXAMINATION TYPE: US carotid duplex BILAT DATE OF EXAM: 01/23/2020 COMPARISON: US 05/21/2012, CTA 02/08/2011 CLINICAL HISTORY: syncope. EXAM MEASUREMENTS: RIGHT: Peak Systolic Velocity (PSV) cm/sec ----- Right CCA: 103 ----- Right ICA: 174 ----- Right ECA: 441 ICA/CCA ratio: 1.7 RIGHT: End Diastole cm/sec ----- Right CCA: 12.3 ----- Right ICA: 26.3 ----- Right ECA: 0 LEFT: Peak Systolic Velocity (PSV) cm/sec ----- Left CCA: 109 ----- Left ICA: 154 ----- Left ECA: 317 ICA/CCA ratio: 1.4 LEFT: End Diastole cm/sec ----- Left CCA: 15.6 ----- Left ICA: 31.7 ----- Left ECA: 16.3 VERTEBRALS (direction of flow): Right Vertebral: Antegrade Left Vertebral: Antegrade Rhythm: Arrhythmia seen on left ICA image 45 Moderate intimal thickening bilaterally and plaque visualized in bilateral bulbs. Elevated velocities visualized in right ICA, right ECA, left ICA, left ECA, and left vertebral IMPRESSION: There is antegrade flow in the vertebral arteries. The images and measurements suggest 50-70% stenosi s in both internal carotid arteries and more than 70% stenosis in the right external carotid artery. Criteria for Assigning % of Stenosis / Diameter reduction (Estimation based on the indirect measurements of the internal carotid artery velocities (ICA PSV). 1. Normal (no stenosis)=ICA PSV < 125 cm/s: ratio < 2.0: ICA EDV<40 cm/s. 2. Less than 50% stenosis=ICA PSV < 125 cm/s: ratio < 2.0: ICA EDV<40 cm/s. 3. 50 to 69% stenosis=ICA PSV of 125 to 230 cm/s: ration 2.0 ? 4.0: ICA EDV 40-100 cm/s. 4. Greater than 70% stenosis to near occlusion= ICA PSV > 230 cm/s: ratio > 4.0: ICA EDV > 100 cm/s. 5. Near occlusion= ICA PSV velocities may be low or undetectable: variable ratio and ICA EDV. 6. Total occlusion=unable to detect flow.
[2020-01-23 16:53] LABS: Glucose,Whole Blood 170 mg/dL (75-99)
--- NOTE | 2020-01-23 17:52 | P.HPIM ---
History of Present Illness H&P Date: 01/23/20 Chief Complaint: Syncope Patient is a 74-year-old male who was recently admitted to [facility] with COPD exacerbation, he was transferred to [facility] for rehabilitation, he was therefore few days, yesterday he felt dizzy without while he was standing in the bathroom was to nurses are found him, apparently he lost consciousness and was is down to the floor, EMS were called and patient was brought in to [facility] emergency room, he was readmitted to telemetry floor cardiology consultation was requested echocardiogram and carotid Doppler were ordered. Patient has a known history of advanced COPD was chronic respiratory failure requiring home oxygen he is a lifelong smoker and he quit just a couple of weeks ago he also has a known history of hypertension, BPH, and anxiety disorder. On presentation patient had evidence of urinary tract infection he was started on IV Rocephin and was admitted to telemetry floor. Past Medical History Past Medical History: COPD, CVA/TIA Additional Past Medical History / Comment(s): TIA in 2007, Severe oxygen dependent, steroid dependent chronic obstructive pulmonary disease with an FEV1 value 29% of predicted History of Any Multi-Drug Resistant Organisms: None Reported Past Surgical History: No Surgical Hx Reported Additional Past Surgical History / Comment(s): vasectomy Past Anesthesia/Blood Transfusion Reactions: No Reported Reaction Past Psychological History: No Psychological Hx Reported Smoking Status: Current every day smoker Past Alcohol Use History: None Reported Past Drug Use History: None Reported - Past Family History Mother Family Medical History: No Reported History Additional Family Medical History / Comment(s): breast cancer history on mothers side Medications and Allergies Home Medications Medication Instructions Recorded Confirmed Type Ipratropium-Albuterol Nebulize 3 ml INHALATION RT-Q4H 02/19/18 01/22/20 History [Duoneb 0.5 mg-3 mg/3 ml Soln] ALPRAZolam [Xanax] 0.25 mg PO BID PRN 01/03/20 01/22/20 History Albuterol Inhaler [Ventolin Hfa 1 - 2 puff INHALATION RT-Q4H PRN 01/03/20 01/22/20 History Inhaler] Budesonide-Formot 160-4.5 Mcg 2 puff INHALATION RT-BID 01/03/20 01/22/20 History [Symbicort 160-4.5 Mcg Inhaler] Ferrous Sulfate [Iron (65 MG 325 mg PO BID tab 01/11/20 01/22/20 Rx Elemental)] Metoprolol Tartrate [Lopressor] 25 mg PO BID tab 01/11/20 01/22/20 Rx Nicotine 14Mg/24Hr Patch [Habitrol] 1 patch TRANSDERM DAILY patch 01/11/20 0 01/22/20 Rx amLODIPine [Norvasc] 5 mg PO DAILY tab 01/11/20 01/22/20 Rx Bisacodyl [Dulcolax] 10 mg RECTAL DAILY PRN 01/22/20 01/22/20 History Magnesium Hydroxide [Milk of 7,200 mg PO DAILY PRN 01/22/20 01/22/20 History Magnesia Concentrate] Na Phos,M-B/Na Phos,Di-Ba [Fleet 133 ml RECTAL DAILY PRN 01/22/20 01/22/20 History Adult] Tamsulosin HCl [Flomax] 0.4 mg PO BID 01/22/20 01/22/20 History predniSONE See Taper PO DAILY 01/22/20 01/22/20 History Allergies Allergy/AdvReac Type Severity Reaction Status Date / Time No Known Allergies Allergy Verified 01/22/20 18:48 Physical Exam Vitals: Vital Signs Temp Pulse Pulse Resp BP BP Pulse Ox 01/23/20 16:16 80 01/23/20 16:02 80 01/23/20 13:12 76 01/23/20 13:01 72 01/23/20 12:38 97.8 F 63 18 113/46 100 01/23/20 09:21 80 01/23/20 09:10 80 01/23/20 05:00 97.9 F 66 16 118/57 99 01/22/20 21:16 98.6 F 84 16 119/64 100 01/22/20 20:31 78 01/22/20 20:12 78 01/22/20 18:00 98 F 87 16 117/58 96 Intake and Output 01/23/20 01/23/20 01/23/20 06:59 14:59 22:59 Intake Total 590 650 Output Total 400 Balance 190 650 Intake: Intake, IV Titration 650 Amount Sodium Chloride 0.9% 1, 600 000 ml @ 100 mls/hr IV . Q10H [facility] Rx#:[id number] cefTRIAXone 1 gm In 50 Sodium Chloride 0.9% 50 ml @ 100 mls/hr IVPB ONCE [facility] Rx#:[id number] Oral 590 Output: Urine 400 Other: Voiding Method Indwelling Catheter Indwelling Catheter Weight 60.781 kg In general patient is alert and oriented 3 in no apparent distress HEENT head normocephalic and atraumatic Neck is supple no JVD no goiter no lymphadenopathy no carotid bruit Chest exam reveals a few scattered crackles bilaterally no wheezing Cardiac exam reveals regular heart sounds S1 and S2 no gallops no murmurs Abdomen is soft nontender no organomegaly with normal bowel sounds Extremity exam reveals no edema no cyanosis or clubbing Neurological examination reveals no gross focal deficit Results CBC & Chem 7: 01/22/20 13:36 01/22/20 13:36 Labs: Abnormal Lab Results - Last 24 Hours (Table) 01/22/20 01/23/20 01/23/20 Range/Units 20:07 07:00 11:11 POC Glucose (mg/dL) 199 H 151 H 221 H (75-99) mg/dL 01/23/20 Range/Units 16:51 POC Glucose (mg/dL) 170 H (75-99) mg/dL Microbiology - Last 24 Hours (Table) 01/22/20 14:18 Urine Culture - Preliminary Urine,Catheterized Thrombosis Risk Factor Assmnt - Choose All That Apply Any of the Below Risk Factors Present?: Yes Each Factor Represents 1 point: Abnormal pulmonary function (COPD), Serious lung disease incl. pneumonia (< 1month) Other Risk Factors: Yes Each Risk Factor Represents 3 Points: Age 75 years or older Other congenital or acquired thrombophilia - If yes, enter type in comment: No Thrombosis Risk Factor Assessment Total Risk Factor Score: 5 Thrombosis Risk Factor Assessment Level: High Risk Assessment and Plan Plan: #1 syncope was collapse #2 underlying advanced COPD with chronic hypoxic respiratory failure requiring home oxygen #3 recent admission with acute exacerbation of COPD #4 evidence of urinary tract infection patient was started on IV Rocephin awaiting urine culture #5 underlying history of benign prostatic hypertrophy maintained on Flomax At this time will check echocardiogram and carotid Doppler etiology consultation was requested will follow during this hospitalization
[2020-01-23 20:02] LABS: Glucose,Whole Blood 219 mg/dL (75-99)
[2020-01-24] MEDS: methylPREDNISolone SOD SUCCI 125 MG/2 ML VIAL IV SCH ×5 (01:17→23:24)
[2020-01-24 07:03] LABS: Glucose,Whole Blood 146 mg/dL (75-99)
[2020-01-24] MEDS: INSULIN ASPART (NovoLOG) 100 UNIT/ML VIAL SQ SCH ×4 (07:55→21:21)
[2020-01-24] MEDS: amLODIPine 5 MG TAB PO SCH (07:55)
[2020-01-24] MEDS: FERROUS SULFATE 325 MG TAB PO SCH ×2 (07:56→21:21)
[2020-01-24] MEDS: NICOTINE 14MG/24HR PATCH TRANSDERM SCH (07:56)
[2020-01-24] MEDS: METOPROLOL TARTRATE 25 MG TAB PO SCH ×2 (07:56→21:22)
[2020-01-24] MEDS: TAMSULOSIN 0.4 MG CAP.ER.24H PO SCH ×2 (07:56→21:22)
[2020-01-24] MEDS: IPRATROPIUM-ALBUTEROL 3 ML NEB INHALATION SCH ×4 (08:07→21:07)
--- NOTE | 2020-01-24 09:52 | P.PN ---
Subjective Progress Note Date: 01/24/20 Principal diagnosis: Presyncope This is a very pleasant 74-year-old gentleman who was transferred from [facility] to the hospital for further evaluation off syncope. The patient was receiving rehab at the [facility] facility after recent hospital admission with pneumonia and COPD exacerbation. At that point we consulted to see the patient for further evaluation of cardiac arrhythmia and the patient was diagnosed with multifocal atrial tachycardia. An echocardiogram was performed during that admission and revealed impaired LV function with EF between 40-45%. The patient was discharged to [facility] in stable medical condition. Yesterday when he was doing rehab he felt dizzy and lightheaded and almost lost his consciousness. The patient stated that he remember everything and he does not believe that he lost his consciousness. He did not have any symptoms of chest pain or chest discomfort, no increasing in the shortness of breath, dizziness, heart racing, or feeling of nausea or vomiting. The EKG this time revealed sinus rhythm without any ischemic ST or T-wave abnormalities. The first set of troponin came in to be within normal limits. The chest x-ray did not show any acute abnormalities. The UA was done and revealed what it seems to be UTI and currently the patient is on antibiotic. The patient was seen today, he stated that he is feeling overall better. He denies any symptoms of chest pain or chest discomfort. Denies any shortness of breath. He continues to be on antibiotic for the UTI. Hemodynamically he diane nues to be stable. Objective - Vital Signs Vital signs: Vital Signs Temp 97.7 F 01/24/20 05:00 Pulse 76 01/24/20 08:18 Resp 16 01/24/20 05:00 BP 149/67 01/24/20 05:00 Pulse Ox 97 01/24/20 05:00 Intake & Output 01/23/20 01/24/20 01/24/20 18:59 06:59 18:59 Intake Total 650 670 Output Total 1700 Balance 650 -1030 Weight 60.781 kg Intake: IV 80 ns@20 80 Intake, IV Titration 650 Amount Sodium Chloride 0.9% 1, 600 000 ml @ 100 mls/hr IV . Q10H [facility] Rx#:[id number] cefTRIAXone 1 gm In 50 Sodium Chloride 0.9% 50 ml @ 100 mls/hr IVPB ONCE [facility] Rx#:[id number] Oral 590 Output: Urine 1700 Other: Voiding Method Indwelling Catheter Indwelling Catheter Indwelling Catheter - Constitutional General appearance: Present: no acute distress - Respiratory Respiratory: bilateral: CTA - Cardiovascular Rhythm: regular Heart sounds: normal: S1, S2 - Labs CBC & Chem 7: 01/22/20 13:36 01/22/20 13:36 Labs: Abnormal Lab Results - Last 24 Hours (Table) 01/23/20 01/23/20 01/23/20 Range/Units 11:11 16:51 20:00 POC Glucose (mg/dL) 221 H 170 H 219 H (75-99) mg/dL 01/24/20 Range/Units 07:02 POC Glucose (mg/dL) 146 H (75-99) mg/dL Microbiology - Last 24 Hours (Table) 01/22/20 14:18 Urine Culture - Final Urine,Catheterized Shayy albicans Assessment and Plan Assessment: Assessment #1 urinary tract infection #2 presyncope #3 history of multifocal atrial tachycardia #4 cardiomyopathy with EF between 40-45% Plan #1 currently the patient is on antibiotic for the UTI #2 rule out acute coronary event. We'll follow-up with the serial cardiac enzymes #3 rule out cardiac arrhythmia on a substrate of cardiomyopathy #4 continue monitor the heart rate and monitor for any arrhythmia #5 follow-up with the patient Thank you for allowing us participate in his care
--- NOTE | 2020-01-24 10:34 | P.PN ---
Subjective Progress Note Date: 01/24/20 Patient is a 74-year-old male who was recently admitted to [facility] with COPD exacerbation, he was transferred to [facility] for rehabilitation, he was therefore few days, yesterday he felt dizzy without while he was standing in the bathroom was to nurses are found him, apparently he lost consciousness and was is down to the floor, EMS were called and patient was brought in to [facility] emergency room, he was readmitted to telemetry floor cardiology consultation was requested echocardiogram and carotid Doppler were ordered. Patient has a known history of advanced COPD was chronic respiratory failure requiring home oxygen he is a lifelong smoker and he quit just a couple of weeks ago he also has a known history of hypertension, BPH, and anxiety disorder. On presentation patient had evidence of urinary tract infection he was started on IV Rocephin and was admitted to telemetry floor. On 01/24/2020 patient was seen and examined on the medical floor he is alert and oriented 3 in no apparent distress there is no fever or chills no headache or dizziness no chest pain, shortness of breath is at his baseline, he has occasional cough, there is no nausea or vomiting no abdominal pain no diarrhea no burning with urination no frequency or urgency and no hematuria Objective - Vital Signs Vital signs: Vital Signs Temp 97.7 F 01/24/20 05:00 Pulse 75 01/24/20 05:00 Resp 16 01/24/20 05:00 BP 149/67 01/24/20 05:00 Pulse Ox 97 01/24/20 05:00 Intake & Output 01/23/20 01/24/20 01/24/20 18:59 06:59 18:59 Intake Total 650 670 Output Total 1700 Balance 650 -1030 Weight 60.781 kg Intake: IV 80 ns@20 80 Intake, IV Titration 650 Amount Sodium Chloride 0.9% 1, 600 000 ml @ 100 mls/hr IV . Q10H [facility] Rx#:[id number] cefTRIAXone 1 gm In 50 Sodium Chloride 0.9% 50 ml @ 100 mls/hr IVPB ONCE [facility] Rx#:[id number] Oral 590 Output: Urine 1700 Other: Voiding Method Indwelling Catheter Indwelling Catheter - Exam In general patient is alert and oriented 3 in no apparent distress HEENT head normocephalic and atraumatic Neck is supple no JVD no goiter no lymphadenopathy no carotid bruit Chest exam reveals a few scattered crackles bilaterally no wheezing Cardiac exam reveals regular heart sounds S1 and S2 no gallops no murmurs Abdomen is soft nontender no organomegaly with normal bowel sounds Extremity exam reveals no edema no cyanosis or clubbing Neurological examination reveals no gross focal deficit - Labs CBC & Chem 7: 01/22/20 13:36 01/22/20 13:36 Labs: Abnormal Lab Results - Last 24 Hours (Table) 01/23/20 01/23/20 01/23/20 Range/Units 11:11 16:51 20:00 POC Glucose (mg/dL) 221 H 170 H 219 H (75-99) mg/dL 01/24/20 Range/Units 07:02 POC Glucose (mg/dL) 146 H (75-99) mg/dL Microbiology - Last 24 Hours (Table) 01/22/20 14:18 Urine Culture - Final Urine,Catheterized Shayy albicans Assessment and Plan Plan: #1 syncope was collapse #2 underlying advanced COPD with chronic hypoxic respiratory failure requiring home oxygen #3 recent admission with acute exacerbation of COPD #4 evidence of urinary tract infection patient was started on IV Rocephin awaiting urine culture #5 underlying history of benign prostatic hypertrophy maintained on Flomax At this time will check echocardiogram and carotid Doppler etiology consultation was requested will follow during this hospitalization Cardiology consult requested regarding syncope carotid Doppler were ordered
[2020-01-24 11:33] LABS: Glucose,Whole Blood 141 mg/dL (75-99)
[2020-01-24 17:13] LABS: Glucose,Whole Blood 187 mg/dL (75-99)
[2020-01-24 19:29] LABS: Glucose,Whole Blood 212 mg/dL (75-99)
[2020-01-25] MEDS: methylPREDNISolone SOD SUCCI 125 MG/2 ML VIAL IV SCH ×4 (05:35→23:39)
[2020-01-25 06:58] LABS: Glucose,Whole Blood 164 mg/dL (75-99)
[2020-01-25 07:58] LABS: Anisocytosis Moderate; Basophils % (A) 0 %; Eosinophils % (A) 0 %; HCT 28.5 % (39.0-53.0); HGB 8.6 gm/dL (13.0-17.5); Hypochromasia Moderate; Lymphocytes # (A) 0.2 k/uL (1.0-4.8); Lymphocytes % (A) 2 %; MCH 23.7 pg (25.0-35.0); MCHC 30.3 g/dL (31.0-37.0); MCV 78.4 fL (80.0-100.0); Mean Platelet Volume 7.6; Microcytosis Moderate; Monocytes # (A) 0.2 k/uL (0-1.0); Monocytes % (A) 2 %; Neutrophils # (A) 8.8 k/uL (1.3-7.7); Neutrophils % (A) 96 %; Platelet Count 144 k/uL (150-450); RBC 3.63 m/uL (4.30-5.90); RDW 22.2 % (11.5-15.5); WBC 9.2 k/uL (3.8-10.6)
[2020-01-25 08:11] LABS: ALT 30 U/L (4-49); AST 18 U/L (17-59); African American GFR (CKD) >90 (>60 ml/min/1.73 sqM); Albumin 2.6 g/dL (3.5-5.0); Alkaline Phosphatase 70 U/L (38-126); Anion Gap 3 mmol/L; Blood Urea Nitrogen 45 mg/dL (9-20); Calcium 8.5 mg/dL (8.4-10.2); Carbon Dioxide 26 mmol/L (22-30); Chloride 104 mmol/L (98-107); Glucose 145 mg/dL (74-99); Non-African American GFR(CKD) 78 (>60 ml/min/1.73 sqM); Potassium 5.4 mmol/L (3.5-5.1); Sodium 133 mmol/L (137-145); Total Bilirubin 0.4 mg/dL (0.2-1.3)
[2020-01-25] MEDS: IPRATROPIUM-ALBUTEROL 3 ML NEB INHALATION SCH ×4 (08:12→19:11)
[2020-01-25] MEDS: INSULIN ASPART (NovoLOG) 100 UNIT/ML VIAL SQ SCH ×4 (08:42→21:00)
[2020-01-25] MEDS: NICOTINE 14MG/24HR PATCH TRANSDERM SCH (08:42)
[2020-01-25] MEDS: METOPROLOL TARTRATE 25 MG TAB PO SCH ×2 (08:43→21:01)
[2020-01-25] MEDS: FERROUS SULFATE 325 MG TAB PO SCH ×2 (08:43→21:00)
[2020-01-25] MEDS: amLODIPine 5 MG TAB PO SCH (08:43)
[2020-01-25] MEDS: TAMSULOSIN 0.4 MG CAP.ER.24H PO SCH ×2 (08:43→21:01)
[2020-01-25] MEDS ORDERED: SODIUM POLYSTYRENE SULFONATE 15 GM/60 ML BOTTLE PO STA (09:20)
[2020-01-25 11:33] LABS: Glucose,Whole Blood 167 mg/dL (75-99)
[2020-01-25] MEDS ORDERED: SODIUM CHLORIDE 0.9% 1,000 ML IV SCH (14:45)
--- NOTE | 2020-01-25 14:54 | P.PN ---
Subjective Progress Note Date: 01/25/20 Patient is a 74-year-old male who was recently admitted to [facility] with COPD exacerbation, he was transferred to [facility] for rehabilitation, he was therefore few days, yesterday he felt dizzy without while he was standing in the bathroom was to nurses are found him, apparently he lost consciousness and was is down to the floor, EMS were called and patient was brought in to [facility] emergency room, he was readmitted to telemetry floor cardiology consultation was requested echocardiogram and carotid Doppler were ordered. Patient has a known history of advanced COPD was chronic respiratory failure requiring home oxygen he is a lifelong smoker and he quit just a couple of weeks ago he also has a known history of hypertension, BPH, and anxiety disorder. On presentation patient had evidence of urinary tract infection he was started on IV Rocephin and was admitted to telemetry floor. On 01/24/2020 patient was seen and examined on the medical floor he is alert and oriented 3 in no apparent distress there is no fever or chills no headache or dizziness no chest pain, shortness of breath is at his baseline, he has occasional cough, there is no nausea or vomiting no abdominal pain no diarrhea no burning with urination no frequency or urgency and no hematuria On 01/25/2020 patient is alert and oriented 3. Patient does report his shortness breath is at baseline. Patient denies any chest pain. Patient has been up ambulating. Discussed case with cardiology nurse practitioner plan tilt table test for tomorrow to 04/20/2020. At this time patient denies any chest pain. Patient denies nausea vomiting or diarrhea. Patient denies any urinary burning or frequency Objective - Vital Signs Vital signs: Vital Signs Temp 97.4 F L 01/25/20 11:56 Pulse 65 01/25/20 11:56 Resp 18 01/25/20 11:56 BP 134/57 01/25/20 11:56 Pulse Ox 96 01/25/20 11:56 Intake & Output 01/24/20 01/25/20 01/25/20 18:59 06:59 18:59 Intake Total 50 240 Output Total 600 Balance -550 240 Intake: Intake, IV Titration 50 Amount cefTRIAXone 1 gm In 50 Sodium Chloride 0.9% 50 ml @ 100 mls/hr IVPB Q24HR [facility] Rx#:[id number] Oral 240 Output: Urine 600 Other: Voiding Method Indwelling Catheter Indwelling Catheter Indwelling Catheter # Bowel Movements 0 - Exam In general patient is alert and oriented 3 in no apparent distress HEENT head normocephalic and atraumatic Neck is supple no JVD no goiter no lymphadenopathy no carotid bruit Chest exam reveals a few scattered crackles bilaterally no wheezing Cardiac exam reveals regular heart sounds S1 and S2 no gallops no murmurs Abdomen is soft nontender no organomegaly with normal bowel sounds Extremity exam reveals no edema no cyanosis or clubbing Neurological examination reveals no gross focal deficit - Labs CBC & Chem 7: 01/25/20 07:27 01/25/20 07:27 Labs: Abnormal Lab Results - Last 24 Hours (Table) 01/24/20 01/24/20 01/25/20 Range/Units 17:12 19:27 06:56 RBC (4.30-5.90) m/uL Hgb (13.0-17.5) gm/dL Hct (39.0-53.0) % MCV (80.0-100.0) fL MCH (25.0-35.0) pg MCHC (31.0-37.0) g/dL RDW (11.5-15.5) % Plt Count (150-450) k/uL Neutrophils # (1.3-7.7) k/uL Lymphocytes # (1.0-4.8) k/uL Sodium (137-145) mmol/L Potassium (3.5-5.1) mmol/L BUN (9-20) mg/dL Glucose (74-99) mg/dL POC Glucose (mg/dL) 187 H 212 H 164 H (75-99) mg/dL Total Protein (6.3-8.2) g/dL Albumin (3.5-5.0) g/dL 01/25/20 01/25/20 01/25/20 Range/Units 07:27 07:27 11:31 RBC 3.63 L (4.30-5.90) m/uL Hgb 8.6 L (13.0-17.5) gm/dL Hct 28.5 L (39.0-53.0) % MCV 78.4 L (80.0-100.0) fL MCH 23.7 L (25.0-35.0) pg MCHC 30.3 L (31.0-37.0) g/dL RDW 22.2 H (11.5-15.5) % Plt Count 144 L (150-450) k/uL Neutrophils # 8.8 H (1.3-7.7) k/uL Lymphocytes # 0.2 L (1.0-4.8) k/uL Sodium 133 L (137-145) mmol/L Potassium 5.4 H (3.5-5.1) mmol/L BUN 45 H (9-20) mg/dL Glucose 145 H (74-99) mg/dL POC Glucose (mg/dL) 167 H (75-99) mg/dL Total Protein 5.0 L (6.3-8.2) g/dL Albumin 2.6 L (3.5-5.0) g/dL Assessment and Plan Assessment: #1 syncope was collapse #2 underlying advanced COPD with chronic hypoxic respiratory failure requiring home oxygen #3 recent admission with acute exacerbation of COPD #4 evidence of urinary tract infection patient was started on IV Rocephin awaiting urine culture #5 underlying history of benign prostatic hypertrophy maintained on Flomax Carotid Doppler completed showing moderate intimal thickening bilaterally plaque visualized at bilateral polyps. Elevated velocities visualized in right ICA right ECA left ICA left ECA and left vertebral. Patient will be arranged to follow-up with Dr. Street on an outpatient basis 2-D echo completed showing an EF of 50-55%. Per cardiology planning tilt table test for to 01/26/2020 Urine culture positive for Shayy albicans patient started on Diflucan I performed an examination of the patient and discussed their management with the Nurse Practitioner. I have reviewed the Nurse Practitioner's notes and agree with the documented findings and plan of care
--- NOTE | 2020-01-25 15:19 | P.PN ---
Subjective This is a 74-year-old male past medical history significant for severe COPD. He was recently diagnosed with multifocal atrial tachycardia. During that admission he underwent echocardiogram that revealed an impaired LV systolic function with ejection fraction 40-45%. Repeat limited study on this admission reveals LV function has improved to 50-55%. We are following secondary to a syncopal spell at the [facility]. He is seen and examined resting comfortably in bed in no acute distress. HEENT denies symptoms of chest pain, shortness of breath, dizziness or palpitations. He had no further episodes of syncope since coming to the hospital. Blood pressure 134/57 heart rate 65 afebrile maintaining oxygen saturation on nasal cannula. WBC 9.2, hemoglobin 8.6, platelets 144, sodium 133, potassium 5.4, creatinine 0.95, cardiac enzymes negative 2. Currently maintained on amlodipine 5 mg daily Lopressor 25 mg twice a day. Telemetry tracings unremarkable. GENERAL: Well-appearing, well-nourished and in no acute distress. NECK: Supple without JVD or thyromegaly. LUNGS: Breath sounds clear to auscultation bilaterally. Respiration equal and unlabored. No wheezes, rales or rhonchi. Diminished bilaterally. HEART: Regular rate and rhythm without murmurs, rubs or gallops. S1 and S2 heard. EXTREMITIES: Normal range of motion, no edema. No clubbing or cyanosis. Peripheral pulses intact. ASSESSMENT Urinary tract infection Near syncope History of multifocal atrial tachycardia Cardiomyopathy earlier this month likely secondary to significant tachycardia has improved in recent echo PLAN We will perform tilt table study tomorrow to assess for orthostatic changes chronotropic response. Nurse Practitioner note has been reviewed, I agree with a documented findings and plan of care. Patient was seen and examined. Objective - Vital Signs Vital signs: Vital Signs Temp 97.4 F L 01/25/20 11:56 Pulse 78 01/25/20 15:04 Resp 18 01/25/20 15:04 BP 134/57 01/25/20 11:56 Pulse Ox 96 01/25/20 11:56 Intake & Output 01/24/20 01/25/20 01/25/20 18:59 06:59 18:59 Intake Total 50 240 Output Total 600 Balance -550 240 Intake: Intake, IV Titration 50 Amount cefTRIAXone 1 gm In 50 Sodium Chloride 0.9% 50 ml @ 100 mls/hr IVPB Q24HR [facility] Rx#:[id number] Oral 240 Output: Urine 600 Other: Voiding Method Indwelling Catheter Indwelling Catheter Indwelling Catheter # Bowel Movements 0 - Labs CBC & Chem 7: 01/25/20 07:27 01/25/20 07:27 Labs: Abnormal Lab Results - Last 24 Hours (Table) 01/24/20 01/24/20 01/25/20 Range/Units 17:12 19:27 06:56 RBC (4.30-5.90) m/uL Hgb (13.0-17.5) gm/dL Hct (39.0-53.0) % MCV (80.0-100.0) fL MCH (25.0-35.0) pg MCHC (31.0-37.0) g/dL RDW (11.5-15.5) % Plt Count (150-450) k/uL Neutrophils # (1.3-7.7) k/uL Lymphocytes # (1.0-4.8) k/uL Sodium (137-145) mmol/L Potassium (3.5-5.1) mmol/L BUN (9-20) mg/dL Glucose (74-99) mg/dL POC Glucose (mg/dL) 187 H 212 H 164 H (75-99) mg/dL Total Protein (6.3-8.2) g/dL Albumin (3.5-5.0) g/dL 01/25/20 01/25/20 01/25/20 Range/Units 07:27 07:27 11:31 RBC 3.63 L (4.30-5.90) m/uL Hgb 8.6 L (13.0-17.5) gm/dL Hct 28.5 L (39.0-53.0) % MCV 78.4 L (80.0-100.0) fL MCH 23.7 L (25.0-35.0) pg MCHC 30.3 L (31.0-37.0) g/dL RDW 22.2 H (11.5-15.5) % Plt Count 144 L (150-450) k/uL Neutrophils # 8.8 H (1.3-7.7) k/uL Lymphocytes # 0.2 L (1.0-4.8) k/uL Sodium 133 L (137-145) mmol/L Potassium 5.4 H (3.5-5.1) mmol/L BUN 45 H (9-20) mg/dL Glucose 145 H (74-99) mg/dL POC Glucose (mg/dL) 167 H (75-99) mg/dL Total Protein 5.0 L (6.3-8.2) g/dL Albumin 2.6 L (3.5-5.0) g/dL
[2020-01-25 16:50] LABS: Glucose,Whole Blood 246 mg/dL (75-99)
[2020-01-25 20:33] LABS: Glucose,Whole Blood 228 mg/dL (75-99)
[2020-01-26] MEDS: methylPREDNISolone SOD SUCCI 125 MG/2 ML VIAL IV SCH ×2 (05:35→12:14)
[2020-01-26 07:05] LABS: Glucose,Whole Blood 156 mg/dL (75-99)
[2020-01-26 07:40] LABS: Anisocytosis Moderate; Basophils % (A) 0 %; Eosinophils % (A) 0 %; HCT 30.4 % (39.0-53.0); HGB 9.1 gm/dL (13.0-17.5); Hypochromasia Marked; Lymphocytes # (A) 0.1 k/uL (1.0-4.8); Lymphocytes % (A) 2 %; MCH 23.7 pg (25.0-35.0); Mean Platelet Volume 7.7; Microcytosis Slight; Monocytes # (A) 0.2 k/uL (0-1.0); Monocytes % (A) 2 %; Neutrophils # (A) 8.3 k/uL (1.3-7.7); Neutrophils % (A) 96 %; Platelet Count 138 k/uL (150-450); RBC 3.85 m/uL (4.30-5.90); RDW 22.3 % (11.5-15.5); WBC 8.7 k/uL (3.8-10.6)
[2020-01-26] MEDS: METOPROLOL TARTRATE 25 MG TAB PO SCH (07:56)
[2020-01-26] MEDS: amLODIPine 5 MG TAB PO SCH ×2 (07:57→08:00)
[2020-01-26] MEDS: NICOTINE 14MG/24HR PATCH TRANSDERM SCH ×2 (07:57→08:00)
[2020-01-26] MEDS: FERROUS SULFATE 325 MG TAB PO SCH (07:57)
[2020-01-26] MEDS: INSULIN ASPART (NovoLOG) 100 UNIT/ML VIAL SQ SCH ×2 (07:57→12:15)
[2020-01-26] MEDS: TAMSULOSIN 0.4 MG CAP.ER.24H PO SCH (07:57)
[2020-01-26] MEDS: IPRATROPIUM-ALBUTEROL 3 ML NEB INHALATION SCH ×3 (08:04→15:26)
[2020-01-26 08:08] LABS: Albumin 2.6 g/dL (3.5-5.0); Calcium 8.3 mg/dL (8.4-10.2); Potassium 5.2 mmol/L (3.5-5.1); Total Bilirubin 0.3 mg/dL (0.2-1.3); Total Protein 5.1 g/dL (6.3-8.2)
[2020-01-26] MEDS ORDERED: SODIUM POLYSTYRENE SULFONATE 15 GM/60 ML BOTTLE PO STA (08:57)
[2020-01-26] MEDS ORDERED: FLUCONAZOLE 100 MG TAB PO SCH (09:00)
[2020-01-26 11:34] LABS: Glucose,Whole Blood 128 mg/dL (75-99)
--- NOTE | 2020-01-26 11:59 | P.PCN ---
Preoperative Diagnosis: Indication: Syncope Baseline 12-lead EKG shows sinus mechanism, normal NV interval, narrow QRS, normal QT interval, normal ST segments , no delta or epsilon wave Baseline blood pressure was 146/73 mmHg, baseline heart rate was 69 bpm. The patient was tilted upright at a 70 angle as per protocol. Blood pressure remained elevated throughout the procedure. The patient complained of feeling like he was going to be sick, dry heaves and nausea. At that time his heart rate was 75 and blood pressure was 160/77. After few minutes nausea improved. His blood pressure remained elevated throughout the procedure. Occasional PACs and PVCs were noted. He did have slight increase in his heart rate to the 90s and one reading in the low 100s after about 15-20 minutes. There was no correlation with his heart rate and blood pressure and symptoms. At the end of the procedure he was laid supine. Impression Normal twelve-lead EKG No evidence of neurocardiogenic syncope or orthostatic hypotension Occasional PACs and PVCs
[2020-01-26 12:30] VITALS: RESP 17
[2020-01-26 14:35] VITALS: BP 118/56; PULSE 82; TEMP 97.7
--- NOTE | 2020-01-26 14:46 | P.DS ---
Providers Date of admission: 01/24/20 09:14 Expected date of discharge: 01/26/20 Attending physician: Pepe Ruvalcaba Consults: 01/22/20 15:44 Consult Physician Routine Consulting Provider: Girma Knapp Consult Reason/Comments: syncope Do you want consulting provider notified?: Yes Primary care physician: Pepe Peg Layton Hospital Course: Discharge diagnosis #1 syncope was collapse #2 underlying advanced COPD with chronic hypoxic respiratory failure requiring home oxygen #3 recent admission with acute exacerbation of COPD #4 evidence of urinary tract infection patient was started on IV Rocephin awaiting urine culture #5 underlying history of benign prostatic hypertrophy maintained on Flomax Carotid Doppler completed showing moderate intimal thickening bilaterally plaque visualized at bilateral polyps. Elevated velocities visualized in right ICA right ECA left ICA left ECA and left vertebral. Patient will be arranged to follow-up with Dr. Street on an outpatient basis 2-D echo completed showing an EF of 50-55%. Tilt table test completed showing no evidence for neurocardiogenic syncopal orthostatic hypotension Urine culture positive for Shayy albicans patient started on Diflucan. Patient will be discharged on Diflucan for 7 days Hospital course Patient is a 74-year-old male who was recently admitted to [facility] with COPD exacerbation, he was transferred to [facility] for rehabilitation, he was therefore few days, yesterday he felt dizzy without while he was standing in the bathroom was to nurses are found him, apparently he lost consciousness and was is down to the floor, EMS were called and patient was brought in to [facility] emergency room, he was readmitted to telemetry floor cardiology consultation was requested echocardiogram and carotid Doppler were ordered. Patient has a known history of advanced COPD was chronic respiratory failure requiring home oxygen he is a lifelong smoker and he quit just a couple of weeks ago he also has a known history of hypertension, BPH, and anxiety disorder. On presentation patient had evidence of urinary tract infection he was started on IV Rocephin and was admitted to telemetry floor. On 01/24/2020 patient was seen and examined on the medical floor he is alert and oriented 3 in no apparent distress there is no fever or chills no headache or dizziness no chest pain, shortness of breath is at his baseline, he has occasional cough, there is no nausea or vomiting no abdominal pain no diarrhea no burning with urination no frequency or urgency and no hematuria On 01/25/2020 patient is alert and oriented 3. Patient does report his shortness breath is at baseline. Patient denies any chest pain. Patient has been up ambulating. Discussed case with cardiology nurse practitioner plan tilt table test for tomorrow to 20 04/20/2020. At this time patient denies any chest pain. Patient denies nausea vomiting or diarrhea. Patient denies any urinary burning or frequency On 01/26/2020 patient is alert and oriented 3. Patient did undergo tilt table test per cardiology services today showing no evidence of neurocardiogenic syncopal orthostatic hypotension. Patient has been cleared for discharge from cardiology standpoint. Patient to follow-up with Dr. Street outpatient for carotid Doppler. Patient reports he has seen Dr. Street in the past for similar issues at this time patient denies chest pain or shortness of breath. Patient has been up ambulating without weakness or dizziness. Urine currently growing Shayy albicans. Patient will be discharged on Diflucan for 7 days. Patient will be discharged to [facility] for rehab. I performed an examination of the patient and discussed their management with the Nurse Practitioner. I have reviewed the Nurse Practitioner's notes and agree with the documented findings and plan of care Patient Condition at Discharge: Stable Plan - Discharge Summary Discharge Rx Participant: No New Discharge Prescriptions: New Fluconazole [Diflucan] 200 mg PO DAILY 7 Days #7 tab Continue Ipratropium-Albuterol Nebulize [Duoneb 0.5 mg-3 mg/3 ml Soln] 3 ml INHALATION RT-Q4H Albuterol Inhaler [Ventolin Hfa Inhaler] 1 - 2 puff INHALATION RT-Q4H PRN PRN Reason: Shortness Of Breath ALPRAZolam [Xanax] 0.25 mg PO BID PRN PRN Reason: Anxiety Budesonide-Formot 160-4.5 Mcg [Symbicort 160-4.5 Mcg Inhaler] 2 puff INHALATION RT-BID Nicotine 14Mg/24Hr Patch [Habitrol] 1 patch TRANSDERM DAILY patch Ferrous Sulfate [Iron (65 MG Elemental)] 325 mg PO BID tab Metoprolol Tartrate [Lopressor] 25 mg PO BID tab amLODIPine [Norvasc] 5 mg PO DAILY tab Na Phos,M-B/Na Phos,Di-Ba [Fleet Adult] 133 ml RECTAL DAILY PRN PRN Reason: Constipation Magnesium Hydroxide [Milk of Magnesia Concentrate] 7,200 mg PO DAILY PRN PRN Reason: Constipation Bisacodyl [Dulcolax] 10 mg RECTAL DAILY PRN PRN Reason: Constipation predniSONE See Taper PO DAILY Tamsulosin HCl [Flomax] 0.4 mg PO BID Discharge Medication List Ipratropium-Albuterol Nebulize [Duoneb 0.5 mg-3 mg/3 ml Soln] 3 ml INHALATION RT-Q4H 02/19/18 [History] ALPRAZolam [Xanax] 0.25 mg PO BID PRN 01/03/20 [History] Albuterol Inhaler [Ventolin Hfa Inhaler] 1 - 2 puff INHALATION RT-Q4H PRN 01/03/20 [History] Budesonide-Formot 160-4.5 Mcg [Symbicort 160-4.5 Mcg Inhaler] 2 puff INHALATION RT-BID 01/03/20 [History] Ferrous Sulfate [Iron (65 MG Elemental)] 325 mg PO BID tab 01/11/20 [Rx] Metoprolol Tartrate [Lopressor] 25 mg PO BID tab 01/11/20 [Rx] Nicotine 14Mg/24Hr Patch [Habitrol] 1 patch TRANSDERM DAILY patch 01/11/20 [Rx] amLODIPine [Norvasc] 5 mg PO DAILY tab 01/11/20 [Rx] Bisacodyl [Dulcolax] 10 mg RECTAL DAILY PRN 01/22/20 [History] Magnesium Hydroxide [Milk of Magnesia Concentrate] 7,200 mg PO DAILY PRN 01/22/20 [History] Na Phos,M-B/Na Phos,Di-Ba [Fleet Adult] 133 ml RECTAL DAILY PRN 01/22/20 [History] Tamsulosin HCl [Flomax] 0.4 mg PO BID 01/22/20 [History] predniSONE See Taper PO DAILY 01/22/20 [History] Fluconazole [Diflucan] 200 mg PO DAILY 7 Days #7 tab 01/26/20 [Rx] Follow up Appointment(s)/Referral(s): Stanislav Cabral, [NON-STAFF] - As Needed Pepe Ruvalcaba MD [Primary Care Provider] - 1-2 days Juan Phan DO [Doctor of Osteopathic Medicine] - 1 Week Activity/Diet/Wound Care/Special Instructions: return to [facility] Activity as tolerated Diet heart healthy Discharge Disposition: TRANSFER TO SNF/ECF
== END 2020-01-26 04:10 | DRG 312 ==
LOC: EC 13:11 → 5NMEDONC 16:14 → OBSVTOIN 01-24 09:14
PROVIDERS: ADMIT Internal Medicine; ATTEND Internal Medicine
PROC: 4A02XFZ Measurement of Cardiac Rhythm, External Approach (ICD-10-PCS; principal; 2020-01-26 09:00)
PROC: 4A03XB1 Measurement of Arterial Pressure, Peripheral, External Approach (ICD-10-PCS; principal; 2020-01-26 09:00)
DX: R55 Syncope and collapse (principal); I42.9 Cardiomyopathy, unspecified; I47.1 Supraventricular tachycardia; J96.11 Chronic respiratory failure with hypoxia; N39.0 Urinary tract infection, site not specified; F41.9 Anxiety disorder, unspecified; I10 Essential (primary) hypertension; I49.3 Ventricular premature depolarization; F17.200 Nicotine dependence, unspecified, uncomplicated; N40.0 Benign prostatic hyperplasia without lower urinary tract symptoms; J44.9 Chronic obstructive pulmonary disease, unspecified; I49.1 Atrial premature depolarization; Z79.51 Long term (current) use of inhaled steroids; Z79.52 Long term (current) use of systemic steroids; Z79.899 Other long term (current) drug therapy; Z99.81 Dependence on supplemental oxygen; Z86.73 Personal history of transient ischemic attack (TIA), and cerebral infarction without residual deficits; Z80.3 Family history of malignant neoplasm of breast
CPT/HCPCS: 36415; 71046; 80053; 81001; 82550; 83735; 84484; 85025; 85610; 85730; 87086; 93005; 93308; 93660; 93880; 94640; 96361; 96365; 96375; 99285

== ENCOUNTER → 2020-06-08 | Outpatient (CLI) | payer MEDICARE ==
--- NOTE | 2020-06-08 08:54 | XR ---
Left foot HISTORY: Pressure ulcer left heel 3 views left foot Bone mineralization is reduced. There is deformity noted at the fifth metatarsophalangeal joint. Ther e is no periostitis to suggest osteomyelitis. No radiopaque foreign body. There are atherosclerotic v ascular calcifications present. Some degenerative change present at the first metatarsophalangeal joann nt. IMPRESSION: Osteomyelitis is not evident.
== END | disposition home or self-care (01) ==
LOC: RADXRMAIN 07:39
PROVIDERS: ATTEND Podiatrist
DX: L89.623 Pressure ulcer of left heel, stage 3 (principal); I10 Essential (primary) hypertension; J44.9 Chronic obstructive pulmonary disease, unspecified; I73.89 Other specified peripheral vascular diseases

== ENCOUNTER → 2020-10-24 | Outpatient (CLI) | payer MEDICARE ==
--- NOTE | 2020-10-24 20:56 | CT ---
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 Coronal/sagittal reconstructions performed. 3-D reconstructions generated on a dedicated independent workstation. CT DLP: 901.5 mGycm Automated exposure control for dose reduction was used. FINDINGS: The heart is normal size with small anterior basilar pericardial effusion. Moderate emphysematous emmanuel nge in the visualized lower lungs. Bronchial wall thickening suggests acute versus chronic bronchitis . No pleural effusion. Nodular and peripheral areas of arterial hypervascularity, one within the posterior right liver lobe and one within the anterior left liver lobe suggesting areas of vascular shunting or flash filling he mangiomas. Gallbladder, adrenal glands, spleen with a mottled arterial phase enhancement, and pancreas appear wi thin normal limits. Bilateral duplex renal arteries. There are multiple areas of cortical defects in the bilateral lower poles suggesting prior vascular or infectious insults. No dilated small bowel, free fluid, or free air. No mesenteric or retroperitoneal lymphadenopathy. Normal appendix. Moderate stool in the right side of the colon. No pericolonic inflammatory change. A Aguilar catheter is in place but the bladder is incompletely collapsed. There is eccentric left-sided soft tissue prominence at the bladder base, refer to axial image 119 and 118 that could represent un derlying mass or irregular BPH. A few dependent bladder calculi measuring up to 5 mm. No abnormal fluid collection in the pelvis or pelvic lymphadenopathy. Incidental 4.7 x 1.4 x 1.2 cm lipoma within the superficial aspect of the inferior right gluteus maxi mums muscle. BONES: Diffuse osteopenia. Mild degenerative change at the hips. Moderate degenerative change SI joints. Tra nsitional lumbosacral segment. Moderate to advanced degenerative disc disease mid to lower lumbar spi ne with hypertrophic facet arthropathy. VASCULATURE: Mild atherosclerotic narrowing at the celiac axis origin. There appears to be a separate takeoff of t he left gastric artery directly from the aorta. Moderate focal atherosclerotic narrowing proximal SMA. Small duplex bilateral renal arteries with possible moderate to severe narrowing at the origin of the lower left renal artery. Moderate atherosclerotic calcifications distal abdominal aorta and scattered within the bilateral com mon iliac arteries. RIGHT: Segmental mild atherosclerotic narrowing throughout the right common and external iliac arteries. More moderate atherosclerotic narrowing at the origin of the right internal iliac artery. The right common and profunda femoral arteries are patent. Segments of mild focal atelectasis chronic narrowing throughout the SFA. More moderate to severe foca l atherosclerotic narrowing at the level of the adductor hiatus, axial image 212. Scattered mild atherosclerotic calcifications and plaque within the popliteal artery. The takeoff of the anterior tibial artery is patent. Tibial peroneal trunk is patent but with moderat e atherosclerotic calcification at its bifurcation and multiple segmental areas of mild to moderate a therosclerotic narrowing. The peroneal and posterior tibial arteries become diminutive at the mid leg level and there is only f aint visualization into the foot. There is runoff via the anterior tibial artery. LEFT: Segmental mild atherosclerotic narrowing throughout the left common and external iliac arteries. Ther e is a more moderate focal stenosis proximal external iliac artery. Moderate to severe focal atherosclerotic narrowing proximal internal iliac artery. The WHEAT INSPECTOR and profunda femoral arteries are patent. Multiple segments of severe narrowing within the proximal SFA along with intermittent segments of occ lusion to subtotal occlusion spanning approximately 18 cm to the adductor hiatus. Popliteal arteries patent as is the takeoff of the anterior tibial artery but with focal moderate ath erosclerotic calcification along its proximal portion. Tibial peroneal trunk is patent. Segments of moderate atherosclerotic calcification and narrowing wit hin the proximal peroneal artery. The anterior tibial artery becomes diminutive at the distal leg. Faint two-vessel runoff via the post erior tibial and peroneal arteries. IMPRESSION: 1. COPD in the visualized lung bases. 2. Duplex bilateral renal arteries. Significant atherosclerotic narrowing within the inferior renal a rteries is suspected given multiple cortical defects of the lower poles of the kidneys likely from pr ior vascular insults. 3. A Aguilar catheter is in place. The bladder is incompletely collapsed. There is eccentric soft tissu e thickening along the left bladder base that could represent asymmetric BPH or a prostate/bladder ma ss. Correlate with urinalysis, urine cytology, patient's symptoms, and PSA values. LEFT: 4. Multiple contiguous segments of severe narrowing with intermittent segments of occlusion to subtot al occlusion spanning approximately 18 cm of the SFA to the level of the adductor hiatus. 5. Anterior tibial artery becomes diminutive at the distal leg. There is faint two-vessel runoff via the posterior tibial and peroneal arteries. RIGHT: 6. Moderate to severe focal atherosclerotic narrowing of the SFA at the level of the adductor hiatus. 7. Three-vessel runoff though very faint of the posterior tibial and peroneal arteries.
== END | disposition home or self-care (01) ==
LOC: RADCTMAIN 13:25
PROVIDERS: ATTEND Surgery
DX: M79.89 Other specified soft tissue disorders (principal); Z96.0 Presence of urogenital implants
CPT/HCPCS: 82565; 84520; 75635; 36415; Q9967

== ENCOUNTER 2021-06-05 09:19 | Inpatient (IN) | payer MEDICARE ==
[2021-06-05 09:31] LABS: Glucose,Whole Blood 154 mg/dL (75-99)
--- NOTE | 2021-06-05 09:34 | ED ---
General Adult HPI - General Chief complaint: Shortness of Breath Stated complaint: SHITAL Time Seen by Provider: 06/05/21 09:27 Source: EMS Mode of arrival: EMS Limitations: altered mental status - History of Present Illness Initial comments: Dictation was produced using [employer] dictation software. please excuse any grammatical, word or spelling errors. Chief Complaint: 75-year-old male brought to the emergency department by EMS for respiratory distress and altered mental status History of Present Illness: 75-year-old male he has extensive history of COPD and stroke. Patient was brought in by EMS after being found unresponsive with respiratory distress. Patient's history of COPD wears home oxygen. Patient was found by family at home in this condition. He was last seen at baseline last night. Patient is a DO NOT RESUSCITATE except in situations where it perhaps may be a short intubation. Daughter is at bedside reports that this is patient's wish to be DO NOT RESUSCITATE and DO NOT INTUBATE except for mild situations. EMS reports that patient has a gaze deviation to the left. He doesn't appear to be moving any extremities except for his left upper extremity. Upon EMS arrival he was found to be hypoxic at a level in the 60s. Daughter reports that patient may have been hypoxic for 4 hours. Unable to obtain significant mental status PHYSICAL EXAM: General Impression: Obtunded, tachypneic, unresponsive HEENT: Normocephalic atraumatic, extra-ocular movements intact, dry mucous membranes Cardiovascular: Tachycardic Chest: Retractions, tachypneic, very diminish lung sounds bilaterally with auscultation Abdomen: abdomen soft, non-distended, no organomegaly Musculoskeletal: no peripheral edema Neurological: Unresponsive, moving all his left upper extremity, left-sided gaze deviation, opens eyes to painful stimuli ED course: 75-year-old male who is DO NOT RESUSCITATE presents to the emergency department for altered mental status and respiratory distress. Vital signs upon arrival shows heart rate of 125, respiratory of 35. Patient showing severe retractions. Daughter is at bedside. Goals of care were discussed. She states that it's patient's wishes to be DO NOT RESUSCITATE except in the case that there is suspicion that it would be a short intubation if he does get intubated. There is also component of altered mental status that may be secondary to CVA versus hypoxic encephalopathy. Daughter states that she does not want any further care except for basic lab work and chest x-ray. Patient placed on BiPAP for the time being. End of life care will be initiated. We will wait for some more family to come to the bedside. Clinical presentation consistent with respiratory failure. Plan care bedside lung ultrasound shows a line suggesting that patient's respiration symptoms are secondary to COPD. Laboratory evaluation obtained. PH of 7.5 with pCO2 of 35. Metabolic panel shows findings within acceptable limits. Troponin 0.534.Be more elevated patient's usual baseline. Chest x-ray shows no significant abnormalities. Case is discussed with Dr. Ruvalcaba patient's primary care physician. Patient be admitted for end-of-life care. Case is discussed with hospitalist who is wi lling to evaluate patient. EKG interpretation: Ventricular rate 125, sinus tachycardia, OH interval 28, QRS 86, QTC 4:15. No OH prolongation, no QTC prolongation, no ST or T-wave changes noted. Overall, this EKG is unremarkable - Related Data Home Medications Medication Instructions Recorded Confirmed Ipratropium-Albuterol Nebulize 3 ml INHALATION RT-Q4H PRN 02/19/18 06/05/21 [Duoneb 0.5 mg-3 mg/3 ml Soln] Budesonide-Formot 160-4.5 Mcg 2 puff INHALATION RT-BID 01/03/20 06/05/21 [Symbicort 160-4.5 Mcg Inhaler] predniSONE 10 mg PO DAILY 01/22/20 06/05/21 ALPRAZolam [Xanax] 0.25 mg PO BID 06/05/21 06/05/21 Albuterol Sulfate [Ventolin HFA] 2 puff INHALATION RT-Q6H PRN 06/05/21 06/05/21 Ferrous Sulfate [Iron (65 MG 325 mg PO DAILY 06/05/21 06/05/21 Elemental)] Furosemide [Lasix] 20 mg PO DAILY 06/05/21 06/05/21 Pravastatin Sodium [Pravachol] 20 mg PO DAILY 06/05/21 06/05/21 guaiFENesin [Mucinex] 600 mg PO BID PRN 06/05/21 06/05/21 Previous Rx's Medication Instructions Recorded Metoprolol Tartrate [Lopressor] 25 mg PO BID tab 01/11/20 amLODIPine [Norvasc] 5 mg PO DAILY tab 01/11/20 Allergies Allergy/AdvReac Type Severity Reaction Status Date / Time No Known Allergies Allergy Verified 06/05/21 10:00 Review of Systems ROS Statement: Those systems with pertinent positive or pertinent negative responses have been documented in the HPI. ROS Other: All systems not noted in ROS Statement are negative. Past Medical History Past Medical History: COPD, CVA/TIA Additional Past Medical History / Comment(s): TIA in 2007, Severe oxygen dependent, steroid dependent chronic obstructive pulmonary disease with an FEV1 value 29% of predicted History of Any Multi-Drug Resistant Organisms: None Reported Past Surgical History: No Surgical Hx Reported Additional Past Surgical History / Comment(s): vasectomy Past Anesthesia/Blood Transfusion Reactions: No Reported Reaction Past Psychological History: No Psychological Hx Reported Past Alcohol Use History: None Reported Past Drug Use History: None Reported - Past Family History Mother Family Medical History: No Reported History Additional Family Medical History / Comment(s): breast cancer history on mothers side General Exam Limitations: altered mental status Course Vital Signs 06/05/21 06/05/21 06/05/21 09:20 09:26 09:41 Temperature 98.1 F Pulse Rate 125 H 123 H Respiratory 16 35 H Rate Blood Pressure 179/95 O2 Sat by Pulse 97 Oximetry 06/05/21 06/05/21 10:00 10:16 Temperature Pulse Rate 122 H 124 H Respiratory Rate Blood Pressure O2 Sat by Pulse Oximetry Medical Decision Making - Lab Data Result diagrams: 06/05/21 09:25 Lab Results 06/05/21 06/05/21 06/05/21 Range/Units 09:25 09:25 09:25 VBG pH (7.31-7.41) VBG pCO2 (37-51) mmHg VBG HCO3 (24-28) mmol/L Sodium 138 (137-145) mmol/L Potassium 5.4 H (3.5-5.1) mmol/L Chloride 98 (98-107) mmol/L Carbon Dioxide 32 H (22-30) mmol/L Anion Gap 8 mmol/L BUN 28 H (9-20) mg/dL Creatinine 1.51 H (0.66-1.25) mg/dL Est GFR (CKD-EPI)AfAm 51 (>60 ml/min/1.73 sqM) Est GFR (CKD-EPI)NonAf 44 (>60 ml/min/1.73 sqM) Glucose 161 H (74-99) mg/dL POC Glucose (mg/dL) (75-99) mg/dL POC Glu Artificial Glass Eye Maker ID Plasma Lactic Acid Andi 1.1 (0.7-2.0) mmol/L Calcium 9.7 (8.4-10.2) mg/dL Magnesium 1.8 (1.6-2.3) mg/dL Total Bilirubin 0.3 (0.2-1.3) mg/dL AST 27 (17-59) U/L ALT 20 (4-49) U/L Alkaline Phosphatase 117 (38-126) U/L Troponin I 0.534 H* (0.000-0.034) ng/mL Total Protein 6.9 (6.3-8.2) g/dL Albumin 4.2 (3.5-5.0) g/dL 06/05/21 06/05/21 Range/Units 09:25 09:29 VBG pH 7.50 H (7.31-7.41) VBG pCO2 35 L (37-51) mmHg VBG HCO3 27 (24-28) mmol/L Sodium (137-145) mmol/L Potassium (3.5-5.1) mmol/L Chloride (98-107) mmol/L Carbon Dioxide (22-30) mmol/L Anion Gap mmol/L BUN (9-20) mg/dL Creatinine (0.66-1.25) mg/dL Est GFR (CKD-EPI)AfAm (>60 ml/min/1.73 sqM) Est GFR (CKD-EPI)NonAf (>60 ml/min/1.73 sqM) Glucose (74-99) mg/dL POC Glucose (mg/dL) 154 H (75-99) mg/dL POC Glu Artificial Glass Eye Maker ID Leesa Lopez Plasma Lactic Acid Andi (0.7-2.0) mmol/L Calcium (8.4-10.2) mg/dL Magnesium (1.6-2.3) mg/dL Total Bilirubin (0.2-1.3) mg/dL AST (17-59) U/L ALT (4-49) U/L Alkaline Phosphatase (38-126) U/L Troponin I (0.000-0.034) ng/mL Total Protein (6.3-8.2) g/dL Albumin (3.5-5.0) g/dL Critical Care Time Critical Care Time: Yes Total Critical Care Time: 33 Disposition Clinical Impression: Respiratory failure Disposition: ADMITTED IP TO THIS HOSP Condition: Fair Referrals: None,Stated [REFERRING] - 1-2 days
[2021-06-05] MEDS ORDERED: ALBUTEROL NEBULIZED 2.5 MG/3 ML INHALATION STA (09:38)
[2021-06-05] MEDS ORDERED: IPRATROPIUM 0.5 MG/2.5 ML NEBU INHALATION STA (09:38)
[2021-06-05 09:50] LABS: VBG PH 7.5 (7.31-7.41)
--- NOTE | 2021-06-05 09:56 | XR ---
EXAMINATION TYPE: XR chest 1V portable DATE OF EXAM: 06/05/2021 COMPARISON: 01/22/2020 HISTORY: Dyspnea TECHNIQUE: Single frontal view of the chest is obtained. FINDINGS: Overlying leads. Heart size is within normal limits. Coarse interstitial markings are like ly chronic, similar to prior exam. Blunting of the costophrenic angle on the left suggestive of tiny pleural effusion or scarring. No right pleural effusion. No focal consolidation or pneumothorax. IMPRESSION: 1. Probable tiny left pleural effusion or scarring. 2. Coarse interstitial markings are likely chronic.
[2021-06-05 09:57] LABS: Albumin 4.2 g/dL (3.5-5.0); Calcium 9.7 mg/dL (8.4-10.2); Magnesium 1.8 mg/dL (1.6-2.3); Potassium 5.4 mmol/L (3.5-5.1); Total Bilirubin 0.3 mg/dL (0.2-1.3); Total Protein 6.9 g/dL (6.3-8.2)
[2021-06-05] MEDS ORDERED: SODIUM CHLORIDE 0.9% 1,000 ML IV STA (10:43)
[2021-06-05] MEDS ORDERED: NALOXONE 0.4 MG/ML 1 ML VIAL IV PRN (10:43)
[2021-06-05] MEDS ORDERED: LORazepam 2 MG/ML INJ IV STA (10:45)
[2021-06-05 11:34] VITALS: BP 164/97; PULSE 109; TEMP 97.9
[2021-06-05 11:38] VITALS: BMI 18.6
[2021-06-05] MEDS: LORazepam 2 MG/ML INJ IV PRN ×3 (13:18→20:23)
[2021-06-05] MEDS: MORPHINE SULFATE 2 MG/ML SYRINGE IVP PRN ×4 (13:18→22:26)
--- NOTE | 2021-06-05 13:46 | P.HPIM ---
History of Present Illness H&P Date: 06/05/21 Hunter Grover is a year 75 old male who presented to [facility] emergency room with a chief complaint of worsening shortness of breath, and altered mental status patient has a known history of advanced COPD with chronic hypoxic respiratory failure requiring home oxygen. He was evaluated in the emergency room vital examination on presentation revealed a temperature of 98.1 pulse 125 respiration 16 blood pressure 179/95 pulse ox 97% on 15 L via nonrebreather mask Laboratory data reveals venous blood gases revealed a pH of 7.50 pCO2 35 sodium 138 potassium 5.4 chloride 98 CO2 32 BUN 28 creatinine 1.51 glucose was 161 troponin 0.534 Testing in the emergency room revealed chest x-ray revealed small left pleural effusion and chronic coarse interstitial markings, EKG revealed sinus tachycardia with right atrial enlargement and pulmonary disease pattern. Patient was started on BiPAP in the emergency room, and was given albuterol and Atrovent updrafts. Patient was admitted to medical floor for further evaluation and treatment. Multiple family members came in with patient, and they were all in agreement that they want patient to be on hospice they wanted BiPAP to be discontinued and patient to receive comfort care. Past Medical History Past Medical History: COPD, CVA/TIA Additional Past Medical History / Comment(s): TIA in 2007, Severe oxygen dependent, steroid dependent chronic obstructive pulmonary disease with an FEV1 value 29% of predicted History of Any Multi-Drug Resistant Organisms: None Reported Past Surgical History: No Surgical Hx Reported Additional Past Surgical History / Comment(s): vasectomy Past Anesthesia/Blood Transfusion Reactions: No Reported Reaction Past Psychological History: No Psychological Hx Reported Smoking Status: Current every day smoker Past Alcohol Use History: None Reported Past Drug Use History: None Reported - Past Family History Mother Family Medical History: No Reported History Additional Family Medical History / Comment(s): breast cancer history on mothers side Medications and Allergies Home Medications Medication Instructions Recorded Confirmed Type Ipratropium-Albuterol Nebulize 3 ml INHALATION RT-Q4H PRN 02/19/18 06/05/21 History [Duoneb 0.5 mg-3 mg/3 ml Soln] Budesonide-Formot 160-4.5 Mcg 2 puff INHALATION RT-BID 01/03/20 06/05/21 History [Symbicort 160-4.5 Mcg Inhaler] Metoprolol Tartrate [Lopressor] 25 mg PO BID tab 01/11/20 06/05/21 Rx amLODIPine [Norvasc] 5 mg PO DAILY tab 01/11/20 06/05/21 Rx predniSONE 10 mg PO DAILY 01/22/20 06/05/21 History ALPRAZolam [Xanax] 0.25 mg PO BID 06/05/21 06/05/21 History Albuterol Sulfate [Ventolin HFA] 2 puff INHALATION RT-Q6H PRN 06/05/21 06/05/21 History Ferrous Sulfate [Iron (65 MG 325 mg PO DAILY 06/05/21 06/05/21 History Elemental)] Furosemide [Lasix] 20 mg PO DAILY 06/05/21 06/05/21 History Pravastatin Sodium [Pravachol] 20 mg PO DAILY 06/05/21 06/05/21 History guaiFENesin [Mucinex] 600 mg PO BID PRN 06/05/21 06/05/21 History Allergies Allergy/AdvReac Type Severity Reaction Status Date / Time No Known Allergies Allergy Verified 06/05/21 10:00 Physical Exam Vitals: Vital Signs Temp Pulse Pulse Resp BP BP Pulse Ox 06/05/21 11:54 22 06/05/21 11:05 97.9 F 109 H 16 164/97 92 L 06/05/21 10:59 111 H 31 H 104/60 97 06/05/21 10:16 124 H 06/05/21 10:00 122 H 06/05/21 09:41 123 H 06/05/21 09:26 35 H 06/05/21 09:20 98.1 F 125 H 16 179/95 97 Intake and Output 06/04/21 06/05/21 06/05/21 22:59 06:59 14:59 Other: Voiding Method Indwelling Catheter Weight 58.967 kg In general patient is somnolent responsive to stimuli however he closes his eyes quickly and does not respond to questions HEENT head normocephalic and atraumatic Neck is supple no JVD no goiter no lymphadenopathy no carotid bruit Chest examination reveals scattered crackles bilaterally Cardiac exam reveals regular heart sounds S1 and S2 no gallops no murmurs, with tachycardia at rest Abdomen is soft nontender no organomegaly with normal bowel sounds Extremity exam reveals no edema no cyanosis or clubbing Neurological examination reveals no gross focal deficits Results CBC & Chem 7: 06/05/21 09:25 Labs: Abnormal Lab Results - Last 24 Hours (Table) 06/05/21 06/05/21 06/05/21 Range/Units 09:25 09:25 09:25 VBG pH 7.50 H (7.31-7.41) VBG pCO2 35 L (37-51) mmHg Potassium 5.4 H (3.5-5.1) mmol/L Carbon Dioxide 32 H (22-30) mmol/L BUN 28 H (9-20) mg/dL Creatinine 1.51 H (0.66-1.25) mg/dL Glucose 161 H (74-99) mg/dL POC Glucose (mg/dL) (75-99) mg/dL Troponin I 0.534 H* (0.000-0.034) ng/mL 06/05/21 Range/Units 09:29 VBG pH (7.31-7.41) VBG pCO2 (37-51) mmHg Potassium (3.5-5.1) mmol/L Carbon Dioxide (22-30) mmol/L BUN (9-20) mg/dL Creatinine (0.66-1.25) mg/dL Glucose (74-99) mg/dL POC Glucose (mg/dL) 154 H (75-99) mg/dL Troponin I (0.000-0.034) ng/mL Thrombosis Risk Factor Assmnt - Choose All That Apply Any of the Below Risk Factors Present?: Yes Each Factor Represents 1 point: Abnormal pulmonary function (COPD), Medical pt on bed rest Other Risk Factors: Yes Each Risk Factor Represents 2 Points: Age 61-74 years Thrombosis Risk Factor Assessment Total Risk Factor Score: 4 Thrombosis Risk Factor Assessment Level: Moderate Risk Assessment and Plan Plan: Advanced COPD with chronic hypoxic respiratory failure Elevated troponin possible non-ST elevation myocardial infarction Underlying history of hypertension Previous history of stroke At this time patient is admitted to medical floor Multiple family members in the room and they are all requesting to discontinue BiPAP and have patient on comfort care only Hospice consult was requested IV Ativan and IV morphine are ordered Will follow closely
[2021-06-05 13:51] VITALS: RESP 8
== END 2021-06-06 00:10 | disposition hospice, inpatient (51) | DRG 190 ==
LOC: EC 09:19 → 5NMEDONC 10:43
PROVIDERS: ADMIT Internal Medicine; ATTEND Internal Medicine
PROC: 5A09357 Assistance with Respiratory Ventilation, Less than 24 Consecutive Hours, Continuous Positive Airway Pressure (ICD-10-PCS; principal; 2021-06-06)
DX: J44.1 Chronic obstructive pulmonary disease with (acute) exacerbation (principal); I21.4 Non-ST elevation (NSTEMI) myocardial infarction; J96.11 Chronic respiratory failure with hypoxia; G93.1 Anoxic brain damage, not elsewhere classified; J90 Pleural effusion, not elsewhere classified; Z20.822 Contact with and (suspected) exposure to COVID-19; Z66 Do not resuscitate; I10 Essential (primary) hypertension; F17.200 Nicotine dependence, unspecified, uncomplicated; Z51.5 Encounter for palliative care; Z99.81 Dependence on supplemental oxygen; Z86.73 Personal history of transient ischemic attack (TIA), and cerebral infarction without residual deficits; Z79.899 Other long term (current) drug therapy; Z79.52 Long term (current) use of systemic steroids; Z79.51 Long term (current) use of inhaled steroids
CPT/HCPCS: 36415; 71045; 80053; 82803; 83605; 83735; 84484; 93005; 94640; 94660; 99291

== ENCOUNTER 2021-06-06 | Inpatient (IN) | payer MEDICAID | END 2021-06-06 21:14 | disposition E | DRG 951 | PROVIDERS: ADMIT Internal Medicine ==